=== PATIENT | female | born 1995 | race Caucasian/White ===

== ENCOUNTER 2016-11-16 06:44 | Inpatient (IN) | payer MEDICAID ==
--- NOTE | 2016-11-16 06:58 | PCM.LDHP ---
L&D History of Present Illness - General Date of Service: 11/16/16 Admit Problem/Dx: Admission Diagnosis/Problem Admission Diagnosis/Problem - History of Present Illness Introduction:: 21 year old G1Po here for induction of labor at 40+ weeks. complicated by a homonymous hemianopsia which has been worked up and she has had a normal MRI. - Related Data Allergies/Adverse Reactions: Allergies Allergy/AdvReac Type Severity Reaction Status Date / Time No Known Allergies Allergy Verified 11/10/16 01:27 Home Medications: Home Meds PNV95/Ferrous Fumarate/FA [ Tablet] 1 tab PO DAILY 11/10/16 [History] Past Medical History - Past Health History Medical/Surgical History: Denies Medical/Surgical History Social & Family History - Tobacco Use Smoking Status *Q: Never Smoker H&P Review of Systems - Review of Systems: Review Of Systems: See Below General: Reports: No Symptoms HEENT: Reports: No Symptoms Pulmonary: Reports: No Symptoms Cardiovascular: Reports: No Symptoms Gastrointestinal: Reports: No Symptoms Genitourinary: Reports: No Symptoms Musculoskeletal: Reports: No Symptoms Skin: Reports: No Symptoms Psychiatric: Reports: No Symptoms Neurological: Reports: No Symptoms Hematologic/Lymphatic: Reports: No Symptoms Immunologic: Reports: No Symptoms L&D Exam - Exam Exam: See Below - Vital Signs Weight: 82.1 kg - OB Specific Contraction Intensity: Mild to Moderate Movement: Active Heart Tones: Present Heart Tones per Min: 140 - Juarez Score Juarez Score Cervix Position: Midposition Juarez Score Consistency: Medium Juarez Score Effacement: >80% Juarez Score Dilation: 3-4 cm Juarez Score 's Station: -1 ,0 Juarez Score Total: 9 - Exam General: Alert, Oriented HEENT: PERRLA, Conjunctiva Clear, EACs Clear, EOMI, Hearing Intact, Mucosa Moist & [place], Nares Patent, Normal Nasal Septum, Posterior Pharynx Clear, TMs Clear Neck: Supple, Trachea Midline Lungs: Clear to Auscultation, Normal Respiratory Effort Cardiovascular: Regular Rate, Regular Rhythm GI/Abdominal Exam: Normal Bowel Sounds, Soft, Non-Tender, No Organomegaly, No Distention, No Abnormal Bruit, No Mass, Pelvis Stable Genitourinary: Normal external exam, Normal bimanual exam, Normal speculum exam Back Exam: Normal Inspection, Full Range of Motion Extremities: Normal Inspection, Normal Range of Motion, Non-Tender, No Pedal Edema, Normal Capillary Refill Skin: Warm, Dry, Intact Neurological: Cranial Nerves Intact, Reflexes Equal Bilateral Psychiatric: Alert, Normal Affect, Normal Mood Problem List Initiated/Reviewed/Updated: Yes Orders Last 24hrs: Term induction. AROM. Anticipate . EFW 7#3oz Pain management per pt preference
[2016-11-16] MEDS ORDERED: Ondansetron 4 MG/2 ML SDV IVPUSH PRN (07:44)
[2016-11-16] MEDS ORDERED: Nalbuphine 20 MG/1 ML Amp IVPUSH PRN (07:44)
[2016-11-16] MEDS ORDERED: Sodium Chloride 0.9% 10 ML Syringe FLUSH PRN (07:44)
[2016-11-16] MEDS ORDERED: Oxytocin/Lactated Ringers 10 UNIT/1,000 ML BAG IV SCH ×2 (07:45→09:45)
[2016-11-16] MEDS: Lactated Ringers 1,000 ML IV SCH ×2 (09:35→13:46)
[2016-11-16] MEDS ORDERED: fentaNYL 100 MCG/2 ML SDV EPIDUR PRN (12:10)
[2016-11-16] MEDS ORDERED: diphenhydrAMINE 50 MG/ML SDV IVPUSH PRN (12:10)
[2016-11-16] MEDS ORDERED: Bupivacaine/fentaNYL/NS 100 ML Bag EPIDUR SCH (12:15)
[2016-11-16] MEDS: ePHEDrine 50 MG/ML SDV IVPUSH PRN ×3 (13:10→13:45)
--- NOTE | 2016-11-16 13:27 | PCM.PREANE ---
Preanesthetic Assessment - Anesthesia/Transfusion/Family Hx Anesthesia History: Prior Anesthesia Without Reaction Family History of Anesthesia Reaction: No Transfusion History: No Prior Transfusion(s) - Review of Systems General: No Symptoms Pulmonary: No Symptoms Cardiovascular: No Symptoms Gastrointestinal: No Symptoms Neurological: No Symptoms Other: Reports: None - Physical Assessment Pulse: 80 O2 Sat by Pulse Oximetry: 97 Respiratory Rate: 20 Blood Pressure: 133/83 Temperature: 37.3 C Vital Signs: Last Vital Signs Temp 37.3 C 11/16/16 07:44 Pulse 80 11/16/16 07:44 Resp 20 11/16/16 07:44 BP 133/83 11/16/16 07:44 Pulse Ox 97 11/16/16 07:44 Height: 1.6 m Weight: 82.1 kg ASA Class: 2 Mental Status: Alert & Oriented x3 Airway Class: Mallampati = 1 Thyro-Mental Finger Breadths: 2 Mouth Opening Finger Breadths: 3 ROM/Head Extension: Full Lungs: Clear to Auscultation Cardiovascular: Regular Rate, Regular Rhythm - Lab Values: Laboratory Last Values WBC 11.17 K/mm3 (3.98-10.04) H 11/16/16 08:20 RBC 4.02 M/mm3 (3.98-5.22) 11/16/16 08:20 Hgb 12.2 gm/L (11.2-15.7) 11/16/16 08:20 Hct 35.6 % (34.1-44.9) 11/16/16 08:20 MCV 88.6 fl (79.4-94.8) 11/16/16 08:20 MCH 30.3 pg (25.6-32.2) 11/16/16 08:20 MCHC 34.3 g/dl (32.2-35.5) 11/16/16 08:20 RDW Std Deviation 42.4 fL (36.4-46.3) 11/16/16 08:20 Plt Count 187 K/mm3 (182-369) 11/16/16 08:20 MPV 10.8 fl (9.4-12.3) 11/16/16 08:20 Neut % (Auto) 74.1 % (34.0-71.1) H 11/16/16 08:20 Lymph % (Auto) 13.2 % (19.3-51.7) L 11/16/16 08:20 [place] % (Auto) 10.4 % (4.7-12.5) 11/16/16 08:20 Eos % (Auto) 1.9 (0.7-5.8) 11/16/16 08:20 Baso % (Auto) 0.1 % (0.1-1.2) 11/16/16 08:20 Neut # (Auto) 8.29 K/mm3 (1.56-6.13) H 11/16/16 08:20 Lymph # (Auto) 1.47 K/mm3 (1.18-3.74) 11/16/16 08:20 [place] # (Auto) 1.16 K/mm3 (0.24-0.36) H 11/16/16 08:20 Eos # (Auto) 0.21 K/mm3 (0.04-0.36) 11/16/16 08:20 Baso # (Auto) 0.01 K/mm3 (0.01-0.08) 11/16/16 08:20 - Allergies Allergies/Adverse Reactions: Allergies Allergy/AdvReac Type Severity Reaction Status Date / Time No Known Allergies Allergy Verified 11/10/16 01:27 - Acknowledgements Anesthesia Type Planned: Epidural Pt an Appropriate Candidate for the Planned Anesthesia: Yes Alternatives and Risks of Anesthesia Discussed w Pt/Guardian: Yes Pt/Guardian Understands and Agrees with Anesthesia Plan: Yes PreAnesthesia Questionnaire - Past Health History Medical/Surgical History: Denies Medical/Surgical History - SUBSTANCE USE Smoking Status *Q: Never Smoker Tobacco Use Within Last Twelve Months: No Second Hand Smoke Exposure: No Recreational Drug Use History: No - HOME MEDS Home Medications: Home Meds PNV95/Ferrous Fumarate/FA [ Tablet] 1 tab PO DAILY 11/10/16 [History] - CURRENT (IN HOUSE) MEDS Current Meds: Current Medications Diphenhydramine HCl (Benadryl) 25 mg IVPUSH Q6H PRN PRN Reason: Itching Ephedrine Sulfate (Ephedrine Sulfate) 5 mg IVPUSH ASDIRECTED PRN PRN Reason: HYPOTENTSION Fentanyl (Sublimaze) 100 mcg EPIDUR Q3H PRN PRN Reason: PAIN Last Admin: 11/16/16 13:09 Dose: 100 mcg Fentanyl/Bupivacaine HCl (Fentanyl/Bupivacaine/Ns 2 Mcg-0.125% 100 Ml) 100 ml EPIDUR ASDIRECTED PRASANNA Last Admin: 11/16/16 13:11 Dose: 100 ml Lactated Ringer's (Ringers, Lactated) 1,000 mls @ 100 mls/hr IV ASDIRECTED PRASANNA Last Admin: 11/16/16 09:35 Dose: 100 mls/hr Oxytocin/Lactated Ringer's (Pitocin In Lr 10 Units/1,000 Ml) 10 unit in 1,000 mls @ 500 mls/hr IV .CONTINUOUS PRASANNA Oxytocin/Lactated Ringer's (Pitocin In Lr 10 Units/1,000 Ml) 10 unit in 1,000 mls @ 12 mls/hr IV TITRATE PRASANNA; 2 MUNITS/MIN PRN Reason: Protocol Last Titration: 11/16/16 11:47 Dose: 6 munits/min, 36 mls/hr Nalbuphine HCl (Nubain) 10 mg IVPUSH Q2H PRN PRN Reason: Pain (moderate 4-6) Ondansetron HCl (Zofran) 4 mg IVPUSH Q4H PRN PRN Reason: Nausea/Vomiting Sodium Chloride (Saline Flush) 10 ml FLUSH ASDIRECTED PRN PRN Reason: Keep Vein Open
[2016-11-16] MEDS ORDERED: Lanolin 100% Cream 7 GM Tube TOP PRN (20:30)
[2016-11-16] MEDS ORDERED: Witch Hazel Medicated Pads 100/Jar TOP PRN (20:30)
[2016-11-16] MEDS ORDERED: Benzocaine/Menthol 20%-0.5% Spray 56 GM Canister TOP PRN (20:30)
[2016-11-16] MEDS: Ibuprofen 600 MG Tab PO PRN (21:40)
[2016-11-16] MEDS ORDERED: ePHEDrine 50 MG/ML SDV ONE (22:22)
[2016-11-16] MEDS ORDERED: Bupivacaine 0.25% 10 ML SDV ONE (22:22)
[2016-11-17] MEDS: Ibuprofen 600 MG Tab PO PRN ×3 (03:36→14:31)
[2016-11-17] MEDS: Docusate Sodium 100 MG Cap PO PRN ×2 (03:37→08:53)
--- NOTE | 2016-11-17 10:20 | PCM48HPAN ---
Post Anesthesia Note - EVALUATION WITHIN 48HRS OF ANESTHETIC Vital Signs in Normal Range: Yes Patient Participated in Evaluation: Yes Respiratory Function Stable: Yes Airway Patent: Yes Cardiovascular Function Stable: Yes Hydration Status Stable: Yes Pain Control Satisfactory: Yes Nausea and Vomiting Control Satisfactory: Yes Mental Status Recovered: Yes
[2016-11-18] MEDS ORDERED: Measles, Mumps & Rubella Vaccine 0.5 ML SDV SUBCUT ONE (03:42)
[2016-11-18] MEDS: Ibuprofen 600 MG Tab PO PRN (04:05)
[2016-11-18 05:03] VITALS: BP 125/69
--- NOTE | 2016-12-13 06:48 | PCM.DCSUM1 ---
Discharge Summary - Hospital Course Brief History: Admitted for labor. Unremarkable course. - Discharge Data Discharge Date: 11/18/16 Discharge Disposition: Home, Self-Care 01 Condition: Good - Patient Instructions Diet: Usual Diet as Tolerated, Regular Diet as Tolerated Diet, Other: extra calcium and calories while infant Activity: As Tolerated Activity, Other: no heavy lifting x 2 weeks, no tampons or intercourse til vag drainage stop Driving: May Drive Today Showering/Bathing: May Shower Showering/Bathing, Other: no swimming pools or hot tubs until vaginal drainage stops Notify Provider of: Fever, Increased Pain Other/Special Instructions: followup in clinic in 6 weeks, call for appointment - Discharge Plan Home Medications: Home Meds PNV95/Ferrous Fumarate/FA [ Tablet] 1 tab PO DAILY 11/10/16 [History] Patient Handouts: Exclusive , Home Care Instructions for Mom, Eating Plan for Women - General Info Date of Service: 11/18/16 Functional Status: Reports: Pain Controlled - Review of Systems General: Reports: No Symptoms HEENT: Reports: No Symptoms Pulmonary: Reports: No Symptoms Cardiovascular: Reports: No Symptoms Gastrointestinal: Reports: No Symptoms Genitourinary: Reports: No Symptoms Musculoskeletal: Reports: No Symptoms Skin: Reports: No Symptoms Neurological: Reports: No Symptoms Psychiatric: Reports: No Symptoms - Patient Data Vitals - Most Recent: Last Vital Signs Temp 36.5 C 11/18/16 03:38 Pulse 55 L 11/18/16 03:38 Resp 18 11/17/16 19:56 BP 125/69 11/18/16 03:38 Pulse Ox 100 11/18/16 03:38 Weight - Most Recent: 82.1 kg Med Orders - Current: Current Medications Discontinued Medications Benzocaine/Menthol (Dermoplast Pain Relief [place]) 0 gm TOP ASDIRECTED PRN PRN Reason: Perineal Comfort Measure Last Admin: 11/16/16 21:41 Dose: 1 applic Bupivacaine HCl (Sensorcaine-Mpf 0.25%) 10 ml .ROUTE .STK-MED ONE Stop: 11/16/16 22:23 Diphenhydramine HCl (Benadryl) 25 mg IVPUSH Q6H PRN PRN Reason: Itching Docusate Sodium (Colace) 100 mg PO BID PRN PRN Reason: Constipation Last Admin: 11/17/16 08:53 Dose: 100 mg Emollient Ointment (Lansinoh Hpa) 0 gm TOP ASDIRECTED PRN PRN Reason: Sore Nipples Last Admin: 11/17/16 03:37 Dose: 1 applic Ephedrine Sulfate (Ephedrine Sulfate) 5 mg IVPUSH ASDIRECTED PRN PRN Reason: HYPOTENTSION Last Admin: 11/16/16 13:45 Dose: 5 mg Ephedrine Sulfate (Ephedrine Sulfate) 50 mg .ROUTE .STK-MED ONE Stop: 11/16/16 22:23 Fentanyl (Sublimaze) 100 mcg EPIDUR Q3H PRN PRN Reason: PAIN Last Admin: 11/16/16 13:09 Dose: 100 mcg Fentanyl/Bupivacaine HCl (Fentanyl/Bupivacaine/Ns 2 Mcg-0.125% 100 Ml) 100 ml EPIDUR ASDIRECTED PRASANNA Last Admin: 11/16/16 13:11 Dose: 100 ml Lactated Ringer's (Ringers, Lactated) 1,000 mls @ 100 mls/hr IV ASDIRECTED PRASANNA Last Infusion: 11/16/16 15:16 Dose: 100 mls/hr Oxytocin/Lactated Ringer's (Pitocin In Lr 10 Units/1,000 Ml) 10 unit in 1,000 mls @ 500 mls/hr IV .CONTINUOUS PRASANNA Oxytocin/Lactated Ringer's (Pitocin In Lr 10 Units/1,000 Ml) 10 unit in 1,000 mls @ 12 mls/hr IV TITRATE PRASANNA; 2 MUNITS/MIN PRN Reason: Protocol Last Titration: 11/16/16 14:26 Dose: 10 munits/min, 60 mls/hr Ibuprofen (Motrin) 600 mg PO Q6H PRN PRN Reason: Mild pain or fever Last Admin: 11/18/16 04:05 Dose: 600 mg Measles/Mumps/Rubella Vaccine Live (M-M-R Ii Vaccine) 0.5 ml SUBCUT .ONCE ONE Stop: 11/18/16 03:43 Last Admin: 11/18/16 04:06 Dose: 0.5 ml Nalbuphine HCl (Nubain) 10 mg IVPUSH Q2H PRN PRN Reason: Pain (moderate 4-6) Ondansetron HCl (Zofran) 4 mg IVPUSH Q4H PRN PRN Reason: Nausea/Vomiting Sodium Chloride (Saline Flush) 10 ml FLUSH ASDIRECTED PRN PRN Reason: Keep Vein Open Witjuan [place] (Tucks) 1 pad TOP ASDIRECTED PRN PRN Reason: Hemorrhoid pain Last Admin: 11/16/16 21:41 Dose: 1 applic - Exam General: Reports: Alert, Oriented HEENT: Reports: Pupils Equal, Pupils Reactive, EOMI, Mucous Membr. Moist/[place] Neck: Reports: Supple Lungs: Reports: Clear to Auscultation, Normal Respiratory Effort Cardiovascular: Reports: Regular Rate, Regular Rhythm GI/Abdominal Exam: Normal Bowel Sounds, Soft, Non-Tender, No Organomegaly, No Distention, No Abnormal Bruit, No Mass, Pelvis Stable (Female) Exam: Normal External Exam, Normal Speculum Exam, Normal Bimanual Exam Rectal (Female) Exam: Normal Exam, Normal Rectal Tone Back Exam: Reports: Normal Inspection, Full Range of Motion Extremities: Normal Inspection, Normal Range of Motion, Non-Tender, No Pedal Edema, Normal Capillary Refill Skin: Reports: Warm, Dry, Intact Wound/Incisions: Reports: Healing Well Neurological: Reports: No New Focal Deficit Psy/Mental Status: Reports: Alert, Normal Affect, Normal Mood *Q Meaningful Use (DIS) - VTE *Q VTE Criteria *Q: - Stroke *Q Stroke Criteria *Q: - AMI *Q AMI Criteria *Q:
== END 2016-11-18 11:55 | disposition home or self-care (01) | DRG 775 ==
LOC: JD.OB 06:44 → OBSVTOIN 20:07
PROVIDERS: ADMIT Obstetrics & Gynecology; ATTEND Obstetrics & Gynecology
PROC: 10E0XZZ Delivery of Products of Conception, External Approach (ICD-10-PCS; 2016-11-16)
PROC: 0KQM0ZZ Repair Perineum Muscle, Open Approach (ICD-10-PCS; 2016-11-16)
PROC: 3E0P7GC Introduction of Other Therapeutic Substance into Female Reproductive, Via Natural or Artificial Opening (ICD-10-PCS; 2016-11-16)
PROC: 10907ZC Drainage of Amniotic Fluid, Therapeutic from Products of Conception, Via Natural or Artificial Opening (ICD-10-PCS; 2016-11-16)
PROC: 00HU33Z Insertion of Infusion Device into Spinal Canal, Percutaneous Approach (ICD-10-PCS; 2016-11-16)
PROC: 3E0R3CZ (ICD-10-PCS; 2016-11-16)
PROC: 3E0234Z Introduction of Serum, Toxoid and Vaccine into Muscle, Percutaneous Approach (ICD-10-PCS; principal; 2016-11-18)
DX: O75.89 Other specified complications of labor and delivery (principal); H53.469 Homonymous bilateral field defects, unspecified side; O70.1 Second degree perineal laceration during delivery; Z37.0 Single live birth; Z3A.40 40 weeks gestation of pregnancy; Z23 Encounter for immunization
CPT/HCPCS: 36415; 85025; 90707; A9270-GY; J2590; J3010; J7120

== ENCOUNTER 2018-12-13 18:57 | Emergency (ER) | payer MEDICAID ==
[2018-12-13 19:08] VITALS: BP 124/73
--- NOTE | 2018-12-13 21:27 | EDM.PDOC ---
ED HPI GENERAL MEDICAL PROBLEM - General Chief Complaint: [facility] Problem Stated Complaint: 8 wks pg bleeding vaginal Time Seen by Provider: 12/13/18 20:46 Source of Information: Reports: Patient History Limitations: Reports: No Limitations - History of Present Illness INITIAL COMMENTS - FREE TEXT/NARRATIVE: Patient is a 23-year-old female presents ED with scant pink blood with wiping after using the bathroom. Patient has some pressure to her pelvic region and is concerned this is related to her . Patient is 8 weeks . She states her last menstrual cycle was October 22 confirmed by urine test by [facility] [employer]. She denies any clotting or abnormal discharge from her vagina. She denies any nausea or vomiting, fever, dysuria, or recent activity/sexual intercourse that may have precipitated this. history 2 para 1. She does not know her blood type. She does have chronic mild low back pain which is constant from lifting her other child. She's been eating and drinking well. Denies any constipation or diarrhea. Past medical history positive for asthma. She is on albuterol. Denies any abdominal surgeries. Smoking history none. Alcohol use none. Drug use none. [facility] DRIVER specialist is Dr. Read. - Related Data Allergies Allergy/AdvReac Type Severity Reaction Status Date / Time No Known Allergies Allergy Verified 12/13/18 19:08 Home Meds: Home Meds PNV95/Ferrous Fumarate/FA [ Tablet] 1 tab PO DAILY 11/10/16 [History] cephALEXin [Keflex] 500 mg PO BID #9 cap 12/13/18 [Rx] Past Medical History - Past Health History Medical/Surgical History: Denies Medical/Surgical History Gastrointestinal History: Reports: GERD Social & Family History - Family History Family Medical History: Noncontributory - Tobacco Use Smoking Status *Q: Never Smoker - Caffeine Use Caffeine Use: Reports: Coffee - Recreational Drug Use Recreational Drug Use: No ED ROS GENERAL - Review of Systems Review Of Systems: ROS reveals no pertinent complaints other than HPI. ED EXAM - Physical Exam Exam: See Below Exam Limited By: No Limitations General Appearance: Alert, WD/WN, No Apparent Distress Ears: Hearing Grossly Normal Nose: Normal Inspection Throat/Mouth: Normal Voice, No Airway Compromise Head: Atraumatic, Normocephalic Neck: Normal Inspection, Supple Respiratory/Chest: No Respiratory Distress, Lungs Clear, Normal Breath Sounds, No Accessory Muscle Use, Chest Non-Tender Cardiovascular: Normal Peripheral Pulses, Regular Rate, Rhythm, No Murmur GI/Abdominal Exam: Normal Bowel Sounds, Soft, No Organomegaly, No Distention, Tender (Right adnexa region. No pain along McBurney's point. No pain along the right upper quadrant.) Back Exam: Normal Inspection. No: CVA Tenderness (L), CVA Tenderness (R) Extremities: Normal Inspection Neurological: Alert, Oriented, CN II-XII Intact, Normal Cognition, No Motor/ Sensory Deficits Psychiatric: Normal Affect, Normal Mood Skin Exam: Warm, Dry, Intact, Normal Color, No Rash Course - Vital Signs Last Recorded V/S: Last Vital Signs Temp 97.8 F 12/13/18 19:07 Pulse 81 12/13/18 19:07 Resp 16 12/13/18 19:07 BP 124/73 12/13/18 19:07 Pulse Ox 98 12/13/18 19:07 - Orders/Labs/Meds Orders: Active Orders 24 hr Category Date Time Status OB Transvaginal [US] Stat Exams 12/13/18 19:58 Taken CULTURE URINE [RM] Stat Lab 12/13/18 19:15 Received PATIENT RETYPE [BBK] Routine Lab 12/13/18 20:23 Received Labs: Laboratory Tests 12/13/18 12/13/18 12/13/18 Range/Units 19:15 20:23 20:23 WBC 10.01 (3.98-10.04) K/mm3 RBC 4.55 (3.98-5.22) M/mm3 Hgb 14.5 D (11.2-15.7) gm/L Hct 41.9 (34.1-44.9) % MCV 92.1 D (79.4-94.8) fl MCH 31.9 (25.6-32.2) pg MCHC 34.6 (32.2-35.5) g/dl RDW Std Deviation 42.4 (36.4-46.3) fL Plt Count 200 (182-369) K/mm3 MPV 10.5 (9.4-12.3) fl Neutrophils % (Manual) 68 H (40-60) % Band Neutrophils % 0 (0-10) % Lymphocytes % (Manual) 26 (20-40) % Atypical Lymphs % 0 % Monocytes % (Manual) 4 (2-10) % Eosinophils % (Manual) 1 (0.7-5.8) % Basophils % (Manual) 1 (0.1-1.2) Platelet Estimate Adequate Plt Morphology Comment Normal RBC Morph Comment Normal PT (9.7-12.0) SECONDS INR APTT (22-31) SECONDS Sodium 139 (136-145) mEq/L Potassium 3.4 L (3.5-5.1) mEq/L Chloride 102 (98-107) mEq/L Carbon Dioxide 23 (21-32) mEq/L Anion Gap 17.4 H (5-15) BUN 9 (7-18) mg/dL Creatinine 0.6 (0.55-1.02) mg/dL Est Cr Clr Drug Dosing 119.60 mL/min Estimated GFR (MDRD) > 60 (>60) mL/min BUN/Creatinine Ratio 15.0 (14-18) Glucose 92 (74-106) mg/dL Calcium 9.3 (8.5-10.1) mg/dL Total Bilirubin 0.5 (0.2-1.0) mg/dL AST 31 (15-37) U/L ALT 23 (14-59) U/L Alkaline Phosphatase 77 (46-116) U/L C-Reactive Protein 1.7 H* (<1.0) mg/dL Total Protein 8.0 (6.4-8.2) g/dl Albumin 4.0 (3.4-5.0) g/dl Globulin 4.0 gm/dL Albumin/Globulin Ratio 1.0 (1-2) HCG, Quant mIU/mL Urine Color Light yellow (Yellow) Urine Appearance Clear (Clear) Urine pH 6.5 (5.0-8.0) Ur Specific [place] 1.020 (1.005-1.030) Urine Protein Negative (Negative) Urine Glucose (UA) Negative (Negative) Urine Ketones 1+ H (Negative) Urine Occult Blood 2+ H (Negative) Urine Nitrite Negative (Negative) Urine Bilirubin Negative (Negative) Urine Urobilinogen 0.2 (0.2-1.0) Ur Leukocyte Esterase 1+ H (Negative) Urine RBC 5-10 H (0-5) /hpf Urine WBC 10-20 H (0-5) /hpf Ur Squamous Epith Cells 5-10 H (0-5) /hpf Urine Bacteria Few (FEW) /hpf Urine Mucus Rare (FEW) /hpf Blood Type 12/13/18 12/13/18 12/13/18 Range/Units 20:23 20:23 20:23 WBC (3.98-10.04) K/mm3 RBC (3.98-5.22) M/mm3 Hgb (11.2-15.7) gm/L Hct (34.1-44.9) % MCV (79.4-94.8) fl MCH (25.6-32.2) pg MCHC (32.2-35.5) g/dl RDW Std Deviation (36.4-46.3) fL Plt Count (182-369) K/mm3 MPV (9.4-12.3) fl Neutrophils % (Manual) (40-60) % Band Neutrophils % (0-10) % Lymphocytes % (Manual) (20-40) % Atypical Lymphs % % Monocytes % (Manual) (2-10) % Eosinophils % (Manual) (0.7-5.8) % Basophils % (Manual) (0.1-1.2) Platelet Estimate Plt Morphology Comment RBC Morph Comment PT 10.9 (9.7-12.0) SECONDS INR 1.00 APTT 24 (22-31) SECONDS Sodium (136-145) mEq/L Potassium (3.5-5.1) mEq/L Chloride (98-107) mEq/L Carbon Dioxide (21-32) mEq/L Anion Gap (5-15) BUN (7-18) mg/dL Creatinine (0.55-1.02) mg/dL Est Cr Clr Drug Dosing mL/min Estimated GFR (MDRD) (>60) mL/min BUN/Creatinine Ratio (14-18) Glucose (74-106) mg/dL Calcium (8.5-10.1) mg/dL Total Bilirubin (0.2-1.0) mg/dL AST (15-37) U/L ALT (14-59) U/L Alkaline Phosphatase (46-116) U/L C-Reactive Protein (<1.0) mg/dL Total Protein (6.4-8.2) g/dl Albumin (3.4-5.0) g/dl Globulin gm/dL Albumin/Globulin Ratio (1-2) HCG, Quant 09171.0 mIU/mL Urine Color (Yellow) Urine Appearance (Clear) Urine pH (5.0-8.0) Ur Specific [place] (1.005-1.030) Urine Protein (Negative) Urine Glucose (UA) (Negative) Urine Ketones (Negative) Urine Occult Blood (Negative) Urine Nitrite (Negative) Urine Bilirubin (Negative) Urine Urobilinogen (0.2-1.0) Ur Leukocyte Esterase (Negative) Urine RBC (0-5) /hpf Urine WBC (0-5) /hpf Ur Squamous Epith Cells (0-5) /hpf Urine Bacteria (FEW) /hpf Urine Mucus (FEW) /hpf Blood Type B POSITIVE - Re-Assessments/Exams Free Text/Narrative Re-Assessment/Exam: Concerned patient may have an ectopic . Ordered OB transvaginal ultrasound to rule out. In addition CBC, chem 14, ABO/Rh, urinalysis, and quantitative hCG. CBC essentially normal. Sodium 139, potassium 3.4, CO2 23, AG 17.4, creatinine 0.6, glucose 92, CRP is slightly elevated 1.7, hCG quantitative 17,331. Urinalysis 1+ ketones, occult blood 2+, leukocyte Estrace one plus, urine rbc's 5-10, urine wbc's 10-20, urine squamous cells 5-10. Appears to be contaminated. Ordered a urine culture. 12/13/18 21:[address] [facility] radiologists with results ultrasound. Patient has a single intrauterine with heart rate of 94 bpm within normal limits for this early . Measures at approximate 6 weeks 1 day. Small subchorionic hemorrhage measuring 0.3 cm noted. No ectopic . [place] luteum to the right ovary. Suggest close follow-up in one week with [facility] specialist. Blood type: B+ Discussed ultrasound results with patient. She has noted increased frequency of urination now that she thinks of it. I have opted to treat with macrobid 100mg po bid x 5 days. She agrees with plan and has no further questions or concerns. Return precautions discussed with the patient. Discharge instructions as documented. I have opted to change antibiotic to keflex. Departure - Departure Time of Disposition: 21:44 Disposition: Home, Self-Care 01 Condition: Good Clinical Impression: Subchorionic hemorrhage in first trimester Qualifiers: Fetus number: single or unspecified fetus Qualified Code(s): O41.8X10 - Other specified disorders of amniotic fluid and membranes, first trimester, not applicable or unspecified; O46.8X1 - Other antepartum hemorrhage, first trimester UTI (urinary tract infection) Qualifiers: Urinary tract infection type: site unspecified Hematuria presence: with hematuria Qualified Code(s): N39.0 - Urinary tract infection, site not specified ; R31.9 - Hematuria, unspecified - Discharge Information Prescriptions: cephALEXin [Keflex] 500 mg PO BID #9 cap Instructions: Urinary Tract Infection, Adult, Vaginal Bleeding During , First Trimester, Subchorionic Hematoma Referrals: Leisa Read MD [Primary Care Provider] - Forms: ED Department Discharge Additional Instructions: Refrain from heavy lifting, or any activities that cause exertion including sexual activity. Take the Keflex as prescribed. Monitor for increased bleeding as discussed if so return back to the ED for reevaluation. Call and make an appointment with your [facility] specialist to be evaluated within the next week. - My Orders Last 24 Hours: My Active Orders 12/13/18 19:15 CULTURE URINE [RM] Stat 12/13/18 19:58 OB Transvaginal [US] Stat 12/13/18 20:23 PATIENT RETYPE [BBK] Routine - Assessment/Plan Last 24 Hours: My Active Orders 12/13/18 19:15 CULTURE URINE [RM] Stat 12/13/18 19:58 OB Transvaginal [US] Stat 12/13/18 20:23 PATIENT RETYPE [BBK] Routine
[2018-12-13] MEDS ORDERED: Nitrofurantoin Monohydrate/Macrocrystalline 100 MG Cap PO ONE (21:43)
[2018-12-13] MEDS ORDERED: Cephalexin 500 MG Cap PO ONE (21:46)
--- NOTE | 2018-12-14 08:16 | US ---
First trimester obstetrical ultrasound: Multiple real-time images were obtained transvaginally. Comparison: No previous study for current . Dates: LMP: LMP given as 10/22/18, [place] 07/29/19, gestational age 7 weeks 3 days Current ultrasound: [place] 08/07/19, gestational age 6 weeks 1 day Single intrauterine gestation is seen. Yolk sac and pole are identified. Minimal subchorionic hemorrhage is seen. Maternal ovaries appear unremarkable. Measurements: [place]-rump length: 0.48 cm - 6 weeks 1 day Heart rate: 94 bpm Impression: 1. Single intrauterine gestation. Dates as noted above. 2. Very minimal subchorionic hemorrhage which will likely be incidental. 3. Low heart rate which is felt to relate to early gestational age. Diagnostic code #2 I agree with preliminary report from [facility], finalized on 12/13/89, 10:40 PM Central Time
== END 2018-12-13 22:00 | disposition home or self-care (01) ==
LOC: JD.ED 18:57
DX: O20.8 Other hemorrhage in early pregnancy (principal); O23.41 Unspecified infection of urinary tract in pregnancy, first trimester; R31.9 Hematuria, unspecified; Z79.899 Other long term (current) drug therapy; Z3A.08 8 weeks gestation of pregnancy
CPT/HCPCS: 36415; 76817; 80053; 81001; 84702; 85007; 85027; 85610; 85730; 86140; 86900; 86901; 87086; 99284; A9270; 99283

== ENCOUNTER 2019-01-08 13:22 | Emergency (ER) | payer MEDICAID ==
[2019-01-08 14:00] VITALS: BP 109/59; PULSE 85
--- NOTE | 2019-01-08 14:06 | EDM.PDOC ---
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 today. No associated lower abdominal cramping pain. No low back pain. Is any genitourinary complaints. All function has been normal. She did had some mild spotting per vagina about 4 weeks ago did have an ultrasound done at that time. Her last normal menstrual period was estimated to be October 22. Son suggested EDC of July 29, 2019. First delivery ended in a normal vaginal delivery. No previous abdominal surgery Onset: Today, Sudden Onset Date: 01/08/19 Onset Time: 13:00 Duration: Minutes: Location: Reports: Pelvis (Spontaneous bleeding per vagina in .) Quality: Reports: Other (No pain) Severity: Mild (Initially the bleeding was enough to soak several tissues when she was wiping. 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 (see below) (No lower abdominal pain none.) - Related Data Allergies Allergy/AdvReac Type Severity Reaction Status Date / Time No Known Allergies Allergy Verified 01/08/19 14:00 Home Meds: Home Meds oxyCODONE HCl/Acetaminophen [Percocet 5-325 mg Tablet] 1 - 2 each PO Q4H PRN # 12 tablet 01/08/19 [Rx] Past Medical History - Past Health History Medical/Surgical History: Denies Medical/Surgical History Gastrointestinal History: Reports: GERD 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 Denies: Fever, Chills, Malaise, Weakness HEENT: Reports: No Symptoms Respiratory: Reports: No Symptoms Cardiovascular: Reports: No Symptoms Endocrine: Reports: Fatigue GI/Abdominal: Denies: Abdominal Pain, Constipation, Nausea, Vomiting : Reports: Frequency. Denies: Dysuria Musculoskeletal: Reports: No Symptoms. Denies: Back Pain Skin: Reports: No Symptoms Neurological: Reports: No Symptoms Psychiatric: Reports: No Symptoms Hematologic/Lymphatic: Reports: No Symptoms ED EXAM - Physical Exam Exam: See Below Exam Limited By: No Limitations General Appearance: Alert, WD/WN, No Apparent Distress, Other (Vital signs are stable with temperature 36.8. Pulse 85 in sinus respiratory 16 BP 109/59. Sats are 99% on room air.) Eye Exam: Bilateral Eye: Normal Inspection Throat/Mouth: Normal Inspection, Normal Lips, Normal Oropharynx Respiratory/Chest: No Respiratory Distress, Lungs Clear, Normal Breath Sounds, No Accessory Muscle Use Cardiovascular: Normal Peripheral Pulses, Regular Rate, Rhythm, No Edema, No Gallop, No Murmur, No Rub GI/Abdominal Exam: Soft (Gravid uterus is not palpable abdominally.), Non-Tender , No Organomegaly, No Abnormal Bruit, No Mass, Pelvis Stable, Distended ( Hyperactive bowel sounds in all 4 quadrants slightly distended and tympanitic to percussion in all 4 quadrants.), Abnormal Bowel Sounds, Other (Female) Exam: Enlarged Uterus (Uterus feels of a proximal be 11 weeks gestation.). No: Adnexal Mass (L), Adnexal Mass (R) (Cervix is closed.), Cervical Dilatation Heart Tones: Not Butler Back Exam: Normal Inspection, Full Range of Motion. No: CVA Tenderness (L), CVA Tenderness (R) Extremities: Normal Inspection, Normal Range of Motion, Non-Tender Neurological: Alert, Oriented, CN II-XII Intact, Normal Cognition Psychiatric: Normal Affect, Anxious Skin Exam: Warm, Dry, Intact, Normal Color, No Rash Course - Vital Signs Last Recorded V/S: Last Vital Signs Temp 36.8 C 01/08/19 13:58 Pulse 85 01/08/19 13:58 Resp 16 01/08/19 13:58 BP 109/59 L 01/08/19 13:58 Pulse Ox 99 01/08/19 13:58 Orthostatic Blood Pressure [ 114/66 Standing] Orthostatic Blood Pressure [ 110/72 Sitting] Orthostatic Blood Pressure [ 108/62 Supine] - Orders/Labs/Meds Orders: Active Orders 24 hr Category Date Time Status Orthostatic Vital Signs [RC] ASDIRECTED Care 01/08/19 14:05 Active Sodium Chloride 0.9% [Normal Saline] 1,000 ml Med 01/08/19 14:15 Active IV ASDIRECTED Medication Orders Sodium Chloride (Normal Saline) 1,000 mls @ 150 mls/hr IV ASDIRECTED PRASANNA Labs: Laboratory Tests 01/08/19 01/08/19 01/08/19 Range/Units 14:24 14:38 14:38 WBC 7.88 (3.98-10.04) K/mm3 RBC 4.35 (3.98-5.22) M/mm3 Hgb 13.9 (11.2-15.7) gm/dl Hct 39.7 (34.1-44.9) % MCV 91.3 (79.4-94.8) fl MCH 32.0 (25.6-32.2) pg MCHC 35.0 (32.2-35.5) g/dl RDW Std Deviation 41.0 (36.4-46.3) fL Plt Count 177 L (182-369) K/mm3 MPV 10.8 (9.4-12.3) fl Neut % (Auto) 70.6 (34.0-71.1) % Lymph % (Auto) 19.0 L (19.3-51.7) % [place]cock % (Auto) 9.0 (4.7-12.5) % Eos % (Auto) 1.3 (0.7-5.8) Baso % (Auto) 0.1 (0.1-1.2) % Neut # (Auto) 5.56 (1.56-6.13) K/mm3 Lymph # (Auto) 1.50 (1.18-3.74) K/mm3 Hitchcock # (Auto) 0.71 H (0.24-0.36) K/mm3 Eos # (Auto) 0.10 (0.04-0.36) K/mm3 Baso # (Auto) 0.01 (0.01-0.08) K/mm3 Sodium 137 (136-145) mEq/L Potassium 3.8 (3.5-5.1) mEq/L Chloride 105 (98-107) mEq/L Carbon Dioxide 24 (21-32) mEq/L Anion Gap 11.8 (5-15) BUN 11 (7-18) mg/dL Creatinine 0.7 (0.55-1.02) mg/dL Est Cr Clr Drug Dosing 102.51 mL/min Estimated GFR (MDRD) > 60 (>60) mL/min BUN/Creatinine Ratio 15.7 (14-18) Glucose 85 (74-106) mg/dL Calcium 9.1 (8.5-10.1) mg/dL Total Bilirubin 0.3 (0.2-1.0) mg/dL AST 13 L (15-37) U/L ALT 18 (14-59) U/L Alkaline Phosphatase 61 (46-116) U/L Total Protein 7.0 (6.4-8.2) g/dl Albumin 3.7 (3.4-5.0) g/dl Globulin 3.3 gm/dL Albumin/Globulin Ratio 1.1 (1-2) HCG, Quant 9349.0 mIU/mL Urine Color Yellow (Yellow) Urine Appearance Clear (Clear) Urine pH 6.5 (5.0-8.0) Ur Specific [place] 1.020 (1.005-1.030) Urine Protein Negative (Negative) Urine Glucose (UA) Negative (Negative) Urine Ketones Negative (Negative) Urine Occult Blood Trace-lysed H (Negative) Urine Nitrite Negative (Negative) Urine Bilirubin Negative (Negative) Urine Urobilinogen 0.2 (0.2-1.0) Ur Leukocyte Esterase Trace H (Negative) Urine RBC 0-5 (0-5) /hpf Urine WBC 0-5 (0-5) /hpf Ur Squamous Epith Cells 0-5 (0-5) /hpf Urine Bacteria Few (FEW) /hpf Urine Mucus Not seen (FEW) /hpf Blood Type Gel Antibody Screen 01/08/19 Range/Units 14:38 WBC (3.98-10.04) K/mm3 RBC (3.98-5.22) M/mm3 Hgb (11.2-15.7) gm/dl Hct (34.1-44.9) % MCV (79.4-94.8) fl MCH (25.6-32.2) pg MCHC (32.2-35.5) g/dl RDW Std Deviation (36.4-46.3) fL Plt Count (182-369) K/mm3 MPV (9.4-12.3) fl Neut % (Auto) (34.0-71.1) % Lymph % (Auto) (19.3-51.7) % Hitchcock % (Auto) (4.7-12.5) % Eos % (Auto) (0.7-5.8) Baso % (Auto) (0.1-1.2) % Neut # (Auto) (1.56-6.13) K/mm3 Lymph # (Auto) (1.18-3.74) K/mm3 [place]cock # (Auto) (0.24-0.36) K/mm3 Eos # (Auto) (0.04-0.36) K/mm3 Baso # (Auto) (0.01-0.08) K/mm3 Sodium (136-145) mEq/L Potassium (3.5-5.1) mEq/L Chloride (98-107) mEq/L Carbon Dioxide (21-32) mEq/L Anion Gap (5-15) BUN (7-18) mg/dL Creatinine (0.55-1.02) mg/dL Est Cr Clr Drug Dosing mL/min Estimated GFR (MDRD) (>60) mL/min BUN/Creatinine Ratio (14-18) Glucose (74-106) mg/dL Calcium (8.5-10.1) mg/dL Total Bilirubin (0.2-1.0) mg/dL AST (15-37) U/L ALT (14-59) U/L Alkaline Phosphatase (46-116) U/L Total Protein (6.4-8.2) g/dl Albumin (3.4-5.0) g/dl Globulin gm/dL Albumin/Globulin Ratio (1-2) HCG, Quant mIU/mL Urine Color (Yellow) Urine Appearance (Clear) Urine pH (5.0-8.0) Ur Specific [place] (1.005-1.030) Urine Protein (Negative) Urine Glucose (UA) (Negative) Urine Ketones (Negative) Urine Occult Blood (Negative) Urine Nitrite (Negative) Urine Bilirubin (Negative) Urine Urobilinogen (0.2-1.0) Ur Leukocyte Esterase (Negative) Urine RBC (0-5) /hpf Urine WBC (0-5) /hpf Ur Squamous Epith Cells (0-5) /hpf Urine Bacteria (FEW) /hpf Urine Mucus (FEW) /hpf Blood Type B POSITIVE Gel Antibody Screen Negative Meds: Medications Generic Name Dose Route Start Last Admin Trade Name Ela PRN Reason Stop Dose Admin Sodium Chloride 1,000 mls @ 150 mls/hr 01/08/19 14:15 Normal Saline IV ASDIRECTED PRASANNA - Radiology Interpretation Free Text/Narrative:: 23-year-old female presents the ED in the first trimester . It is estimated that she is partially 11 weeks . Last menstrual period was October 22. A 1300 hrs. today while seated at work she started to feel a gush per vagina. On inspection the bathroom she noted this was bright red blood on tissue. She soaks several tissues with blood. Did not notice any clotting. Maroon colored line. Since coming to the hospital she's had no further bleeding. Examination reveals the cervix to be closed uterus is about 11 weeks in size. Extensive tenderness noted. Plan she will have routine labs including a quantitative beta hCG and type and screen done. She will then have a transvaginal ultrasound to rule viability. - Re-Assessments/Exams Free Text/Narrative Re-Assessment/Exam: 01/08/19 15:26 Labs reveal a normal white count at 7.88. The auto differential is 70.6% neutrophils. Hemoglobin is 13.9 with hematocrit of 39.7. Platelets counts 177,000. Urinalysis is normal other than trace of lysed blood. Trace leukocyte esterase but the slide shows no white cells or red cells. Blood type is B+. Quantitative beta-hCG is pending 01/08/19 16:24 Quantitative beta-hCG is 9349.0. Transvaginal ultrasound has been completed. There is a single intrauterine gestation identified. No growth however has been identified since previous examination nearly a month ago. No heart activity is also seen. Findings are compatible with a nonviable or inevitable miscarriage. Departure - Departure Time of Disposition: 16:50 Disposition: Home, Self-Care 01 Condition: Fair Clinical Impression: Inevitable - Discharge Information *PRESCRIPTION DRUG MONITORING PROGRAM REVIEWED*: Not Applicable *COPY OF PRESCRIPTION DRUG MONITORING REPORT IN PATIENT REGINO: Not Applicable Prescriptions: oxyCODONE HCl/Acetaminophen [Percocet 5-325 mg Tablet] 1 - 2 each PO Q4H PRN # 12 tablet PRN Reason: pain relief. Referrals: Leisa Read MD [Primary Care Provider] - Forms: ED Department Discharge, ED Return to Work/School Form Additional Instructions: Evaluation in the emergency room today in regards to sudden onset of bright red bleeding per vagina well seated at work today. Last Neulasta. Is estimated to be October 22, 2018. This should make you approximately 13 weeks and 2 days . The hormone of came back low at 9349. Her leg with a proximally a 3 week . Transvaginal ultrasound reveals a fetus approximate 6 weeks 2 days and size without any heartbeat. There has been no growth of the fetus since the last ultrasound was done nearly a month ago( Dec 13). This means that mother nature has turned off the fetus growth, usually due to a severe congenital abnormality. I.e. mother nature recognizes that this is just not going to turner off right .. You're therefore going to experience a very heavy period likely starting within the next 48 hours. The reason to return to medical care as if you're soaking a pad per hour for 2 consecutive hours would indicate that you are bleeding fairly heavily in need to return for potential operative intervention. If you start to have bad cramps try Motrin 600 mg every 6 hours. You may also use Percocet tabs 5/325 mg tabs one or 2 every 4-6 hours for pain not controlled by Motrin alone. Usually Percocet should be taken with some food in your stomach. With Dr. Bryant on Monday as planned. On my notes will be sent to her office. - My Orders Last 24 Hours: My Active Orders 01/08/19 14:05 Orthostatic Vital Signs [RC] ASDIRECTED 01/08/19 14:15 Sodium Chloride 0.9% [Normal Saline] 1,000 ml IV ASDIRECTED - Assessment/Plan Last 24 Hours: My Active Orders 01/08/19 14:05 Orthostatic Vital Signs [RC] ASDIRECTED 01/08/19 14:15 Sodium Chloride 0.9% [Normal Saline] 1,000 ml IV ASDIRECTED
[2019-01-08] MEDS ORDERED: Sodium Chloride 0.9% 1,000 ML IV SCH (14:15)
--- NOTE | 2019-01-08 16:15 | US ---
1st trimester obstetrical ultrasound: Multiple real-time images were obtained transvaginally. Comparison: Previous obstetrical ultrasound 12/13/18. Dates: Current ultrasound: [place] 09/02/19, gestational age 6 weeks 1 day Earliest ultrasound (12/13/18), [place] 08/07/19, gestational age 9 weeks 6 days Single intrauterine gestation is seen. No growth is seen from previous exam. No heart activity is seen. Findings are compatible with nonviable . Maternal ovaries appear within normal limits. Measurements: [place]-rump length: 0.53 cm - 6 weeks 2 days Impression: 1. Single intrauterine gestation. pole has not grown from previous exam. In addition, no heart activity is seen. Findings are felt compatible with nonviable . Diagnostic code #5
== END 2019-01-08 17:11 | disposition home or self-care (01) ==
LOC: JD.ED 13:22
DX: O03.9 Complete or unspecified spontaneous abortion without complication (principal)
CPT/HCPCS: 36415; 76817; 76817-26; 80053; 81001; 84702; 85025; 86850; 86900; 86901; 99284-25

== ENCOUNTER 2019-12-29 11:14 | Emergency (ER) | payer MEDICAID ==
[2019-12-29 11:31] VITALS: BP 144/106; PULSE 79
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
--- NOTE | 2019-12-30 11:14 | CR ---
Chest: Portable view of the chest was obtained. Comparison: No prior chest imaging is available. Heart size and mediastinum are normal. Lungs are clear with no acute parenchymal change. Bony structures are unremarkable for the patient's age. Impression: 1. Nothing acute is appreciated on portable chest x-ray. Diagnostic code #1 This report was dictated in MDT
== END 2019-12-29 12:50 | disposition home or self-care (01) ==
LOC: JD.ED 11:14
DX: J45.909 Unspecified asthma, uncomplicated (principal); Z87.891 Personal history of nicotine dependence; Z79.899 Other long term (current) drug therapy
CPT/HCPCS: 71045; 71045-26; 99283; 99284-25

== ENCOUNTER 2020-01-24 06:07 | Emergency (ER) | payer MEDICAID ==
[2020-01-24 06:21] VITALS: BP 124/73
--- NOTE | 2020-01-24 06:30 | EDM.PDOC ---
ED HPI GENERAL MEDICAL PROBLEM - General Chief Complaint: General Stated Complaint: SORE THROAT Time Seen by Provider: 01/24/20 06:22 - History of Present Illness INITIAL COMMENTS - FREE TEXT/NARRATIVE: 24-year-old female presents the emergency room with a sore throat. This started yesterday progressively got worse. Now feels like she has something in the back of her throat. Prior to coming in the patient drank some tea and this helped quite a bit. Patient denies any fevers or chills she has not had any achiness no loss of taste or smell. The patient has not had any problems with recurrent, or chronic strep. She is not having any difficulty swallowing. Throat Pain Score (Numeric/FACES): 5 - Related Data Allergies Allergy/AdvReac Type Severity Reaction Status Date / Time No Known Allergies Allergy Verified 01/24/20 06:21 Home Meds: Home Meds Albuterol Sulfate [Albuterol Sulfate Hfa] 2 puff INH Q4H PRN 12/29/19 [History] Budesonide/Formoterol Fumarate [Symbicort 80-4.5 MCG] 2 puff IH BID #1 inhaler 12/29/19 [Rx] Fluticasone Propionate [Flonase] 1 spray ZACK DAILY PRN 01/24/20 [History] Past Medical History - Past Health History Medical/Surgical History: Denies Medical/Surgical History Respiratory History: Reports: Asthma Gastrointestinal History: Reports: GERD 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: - Past Surgical History Neurological Surgical History: Reports: Other (See Below) Other Neurological Surgeries/Procedures: arm surgery Social & Family History - Family History Family Medical History: Noncontributory - Caffeine Use Caffeine Use: Reports: None - Living Situation & Occupation Living situation: Reports: Occupation: Employed ED ROS GENERAL - Review of Systems Review Of Systems: See Below Constitutional: Reports: No Symptoms HEENT: Reports: Throat Pain Respiratory: Reports: No Symptoms Cardiovascular: Reports: No Symptoms GI/Abdominal: Reports: No Symptoms : Reports: No Symptoms ED EXAM, GENERAL - Physical Exam Exam: See Below Exam Limited By: No Limitations General Appearance: Alert, No Apparent Distress Eye Exam: Bilateral Eye: Normal Inspection Ears: Normal External Exam, Normal Canal, Hearing Grossly Normal, Normal TMs Nose: Normal Inspection, Normal Mucosa, No Blood Throat/Mouth: Normal Inspection, Normal Lips, Normal Teeth, Normal Gums, Normal Oropharynx, Normal Voice, No Airway Compromise Head: Atraumatic, Normocephalic Neck: Normal Inspection, Supple, Non-Tender, Full Range of Motion Respiratory/Chest: No Respiratory Distress, Lungs Clear, Normal Breath Sounds, No Accessory Muscle Use, Chest Non-Tender Cardiovascular: Regular Rate, Rhythm, No Edema, No Murmur GI/Abdominal: Normal Bowel Sounds, Soft, Non-Tender Back Exam: Normal Inspection. No: CVA Tenderness (L), CVA Tenderness (R) Neurological: Alert, Oriented, Normal Cognition Course - Vital Signs Last Recorded V/S: Last Vital Signs Temp 36.7 C 01/24/20 06:16 Pulse 102 H 01/24/20 06:16 Resp 18 01/24/20 06:16 BP 124/73 01/24/20 06:16 Pulse Ox 98 01/24/20 06:16 - Orders/Labs/Meds Orders: Active Orders 24 hr Category Date Time Status CULTURE STREP A CONFIRMATION [RM] Stat Lab 01/24/20 06:40 Results Rapid Strep w/culture conf [STREP SCRN A RAPID W CULT Lab 01/24/20 06:40 Results CONF] [RM] Stat - Re-Assessments/Exams Free Text/Narrative Re-Assessment/Exam: 01/24/20 07:15 Rapid strep negative await confirmatory culture. Departure - Departure Time of Disposition: 07:15 Disposition: Home, Self-Care 01 Clinical Impression: Pharyngitis - Discharge Information Referrals: Cathie Lake PA-C [Primary Care Provider] - Forms: ED Department Discharge Additional Instructions: Return to the emergency room with any questions problems or worsening symptoms. The confirmatory culture is still pending however your rapid strep was negative. The results of this should be back in a couple of days you will hear back from us if it is positive. Continue symptomatic treatment for your sore throat. Sepsis Event Note (ED) - Evaluation Sepsis Screening Result: No Definite Risk - Focused Exam Vital Signs: Vital Signs Temp Pulse Resp BP Pulse Ox 01/24/20 06:16 36.7 C 102 H 18 124/73 98 - My Orders Last 24 Hours: My Active Orders 01/24/20 06:40 CULTURE STREP A CONFIRMATION [RM] Stat Rapid Strep w/culture conf [STREP SCRN A RAPID W CULT CONF] [RM] Stat - Assessment/Plan Last 24 Hours: My Active Orders 01/24/20 06:40 CULTURE STREP A CONFIRMATION [RM] Stat Rapid Strep w/culture conf [STREP SCRN A RAPID W CULT CONF] [RM] Stat
[2020-01-24 07:38] VITALS: PULSE 101
== END 2020-01-24 07:31 | disposition home or self-care (01) ==
LOC: JD.ED 06:07
DX: J02.9 Acute pharyngitis, unspecified (principal); J45.909 Unspecified asthma, uncomplicated; Z79.899 Other long term (current) drug therapy
CPT/HCPCS: 87081; 87430; 99282; 99283

== ENCOUNTER 2020-02-12 08:05 | Emergency (ER) | payer MEDICAID ==
[2020-02-12] MEDS ORDERED: Dextrose 5%-0.9% NaCl 1,000 ML IV SCH (08:45)
[2020-02-12] MEDS ORDERED: LORazepam 2 MG/ML SDV IV ONE (08:45)
[2020-02-12] MEDS ORDERED: Ondansetron 4 MG/2 ML SDV IVPUSH ONE (08:45)
--- NOTE | 2020-02-12 08:49 | EDM.PDOC ---
ED HPI GENERAL MEDICAL PROBLEM - General Chief Complaint: Gastrointestinal Problem Stated Complaint: VOMITING Time Seen by Provider: 02/12/20 08:39 Source of Information: Reports: Patient History Limitations: Reports: No Limitations - History of Present Illness INITIAL COMMENTS - FREE TEXT/NARRATIVE: 24-year-old female presents to the ED for evaluation of intractable nausea and vomiting. Patient reports she took a 20 mg Prozac tablet for the first time about 1800 hrs. last evening. She will awoke around midnight with acute onset of vomiting. She felt hot flushed and prickly all over. Emesis contained primarily recently drank Gatorade. Subsequently vomited again at 0600 hrs. and again at 0800 hrs. this morning. Feels weak and shaky. She feels moderately anxious as well. Mild diffuse upper abdominal discomfort she believes from vomiting. Denies any possibility of as she is currently menstruating. She has a history of asthma which is well controlled. She has felt mildly chilled. Denies any fever. Has not developed any diarrhea. Denies any cough or sputum production. No known exposure to anyone with COVID-19. Onset: Today, Sudden Onset Date: 02/12/20 Onset Time: 00:00 Duration: Hour(s):, Constant, Intermittent (Tractable recurrent nausea and vomiting.) Location: Reports: Abdomen (Use upper abdominal discomfort with associated nausea and vomiting.) Quality: Reports: Ache (Be gastrium.) Severity: Moderate Improves with: Reports: None Worsens with: Reports: Other (Vomiting. Even water came back up this morning.) Context: Reports: Other (Due to onset of nausea and vomiting 6 hours after taking first tablet of Prozac 20 mg tablet.). Denies: Activity, Exercise, Lifting, Sick Contact, Trauma Associated Symptoms: Reports: Fever/Chills, Loss of Appetite, Malaise, Nausea/Vomiting (Chills but no fever nausea and vomiting), Weakness. 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 (see below) (Nothing will stay down.) Abdomen Pain Score (Numeric/FACES): 4 - Related Data Allergies Allergy/AdvReac Type Severity Reaction Status Date / Time No Known Allergies Allergy Verified 02/12/20 08:33 Home Meds: Home Meds Albuterol Sulfate [Albuterol Sulfate Hfa] 2 puff INH Q4H PRN 12/29/19 [History] Budesonide/Formoterol Fumarate [Symbicort 80-4.5 MCG] 2 puff IH BID #1 inhaler 12/29/19 [Rx] Fluticasone Propionate [Flonase] 1 spray ZACK DAILY PRN 01/24/20 [History] Escitalopram [Lexapro] 10 mg PO DAILY #21 tab 02/12/20 [Rx] FLUoxetine HCl [Prozac] 20 mg PO DAILY 02/12/20 [History] Ondansetron [Zofran] 4 mg BUCCAL Q6H PRN #5 tab 02/12/20 [Rx] Past Medical History - Past Health History Medical/Surgical History: Denies Medical/Surgical History Respiratory History: Reports: Asthma Gastrointestinal History: Reports: GERD 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: : 2 Para: 1 (Patient had 1 spontaneous miscarriage.) Psychiatric History: Reports: Anxiety - Infectious Disease History Infectious Disease History: Reports: Chicken Pox - Past Surgical History Neurological Surgical History: Reports: Other (See Below) Other Neurological Surgeries/Procedures: arm surgery Social & Family History - Family History Family Medical History: Noncontributory - Tobacco Use Tobacco Use Status *Q: Former Tobacco User Used Tobacco, but Quit: Yes Month/Year Tobacco Last Used: quit 6 months ago - Caffeine Use Caffeine Use: Reports: Coffee - Recreational Drug Use Recreational Drug Use: No - Living Situation & Occupation Living situation: Reports: Occupation: Employed ED ROS GENERAL - Review of Systems Review Of Systems: See Below Constitutional: Reports: Chills, Malaise, Weakness, Fatigue, Decreased Appetite. Denies: Fever HEENT: Reports: No Symptoms Respiratory: Reports: No Symptoms Cardiovascular: Reports: No Symptoms Endocrine: Reports: Fatigue GI/Abdominal: Reports: Abdominal Pain, Nausea (Upper abdominal discomfort she believes from vomiting.), Vomiting (Intractable nausea and vomiting of recently drank fluids and mild bile-stained emesis.). Denies: Constipation, Diarrhea, Hematemesis : Reports: Other (Currently on third day of menstrual cycle) Musculoskeletal: Reports: No Symptoms Skin: Reports: No Symptoms Neurological: Reports: Dizziness, Other (Feels hot and prickly and flushed.) Psychiatric: Reports: Anxiety, Depression (Only started Prozac yesterday for anxiety depression symptoms) Hematologic/Lymphatic: Reports: No Symptoms Immunologic: Reports: No Symptoms ED EXAM, GI/ABD - Physical Exam Exam: See Below Exam Limited By: No Limitations General Appearance: Alert, WD/WN, Mild Distress, Other (Temperature is 36.9 with a heart rate of 77 and sinus respiratory is 14 BP 135/95 with O2 sats of 99% room air) Eyes: Bilateral: Normal Appearance (No scleral icterus or blepharal pallor.) Throat/Mouth: Normal Inspection (Tongue is mildly dry and coated.), Normal Lips, Normal Teeth, Normal Oropharynx (No signs of oropharyngeal infection.), Other Head: Atraumatic, Normocephalic Neck: Normal Inspection, Supple, Non-Tender, Full Range of Motion. No: Carotid Bruit, Lymphadenopathy (L), Lymphadenopathy (R) Respiratory/Chest: No Respiratory Distress, Lungs Clear, Normal Breath Sounds, No Accessory Muscle Use Cardiovascular: Normal Peripheral Pulses, Regular Rate, Rhythm, No Edema, No Gallop, No Murmur, No Rub GI/Abdominal Exam: Normal Bowel Sounds, Soft, No Organomegaly ( examination of the epigastrium. Appears to be more muscular in origin.), No Distention, No Mass, Pelvis Stable, Tender (Tenderness elicited on) Back Exam: Normal Inspection, Full Range of Motion. No: CVA Tenderness (L), CVA Tenderness (R) Extremities: Normal Inspection, Normal Range of Motion, Non-Tender, No Pedal Edema Neurological: Alert, Oriented, CN II-XII Intact, Normal Cognition Psychiatric: Anxious (Mild.) Skin Exam: Dry, Intact, Normal Color, No Rash, Cool (Extremities are cool to touch.) Course - Vital Signs Last Recorded V/S: Last Vital Signs Temp 36.9 C 02/12/20 08:34 Pulse 77 02/12/20 08:34 Resp 14 02/12/20 08:34 BP 135/95 H 02/12/20 08:34 Pulse Ox 99 02/12/20 08:34 - Orders/Labs/Meds Orders: Active Orders 24 hr Category Date Time Status Dextrose 5%-0.9% NaCl [Dextrose 5%-Normal Saline] 1,000 Med 02/12/20 08:45 Active ml IV ASDIRECTED Medication Orders Dextrose/Sodium Chloride (Dextrose 5%-Normal Saline) 1,000 mls @ 999 mls/hr IV ASDIRECTED PRASANNA Last Admin: 02/12/20 09:00 Dose: 999 mls/hr Documented by: MELISSA Labs: Laboratory Tests 02/12/20 02/12/20 02/12/20 Range/Units 08:45 08:45 08:53 WBC 11.70 H (3.98-10.04) K/mm3 RBC 4.59 (3.98-5.22) M/mm3 Hgb 14.8 (11.2-15.7) gm/dl Hct 43.8 (34.1-44.9) % MCV 95.4 H D (79.4-94.8) fl MCH 32.2 (25.6-32.2) pg MCHC 33.8 (32.2-35.5) g/dl RDW Std Deviation 42.3 (36.4-46.3) fL Plt Count 241 (182-369) K/mm3 MPV 10.6 (9.4-12.3) fl Neut % (Auto) 83.8 H (34.0-71.1) % Lymph % (Auto) 11.2 L (19.3-51.7) % [place] % (Auto) 4.5 L (4.7-12.5) % Eos % (Auto) 0.2 L (0.7-5.8) Baso % (Auto) 0.1 (0.1-1.2) % Neut # (Auto) 9.81 H (1.56-6.13) K/mm3 Lymph # (Auto) 1.31 (1.18-3.74) K/mm3 [place] # (Auto) 0.53 H (0.24-0.36) K/mm3 Eos # (Auto) 0.02 L (0.04-0.36) K/mm3 Baso # (Auto) 0.01 (0.01-0.08) K/mm3 Sodium 139 (136-145) mEq/L Potassium 3.8 (3.5-5.1) mEq/L Chloride 103 (98-107) mEq/L Carbon Dioxide 23 (21-32) mEq/L Anion Gap 16.8 H (5-15) BUN 12 (7-18) mg/dL Creatinine 0.9 (0.55-1.02) mg/dL Est Cr Clr Drug Dosing 75.58 mL/min Estimated GFR (MDRD) > 60 (>60) mL/min BUN/Creatinine Ratio 13.3 L (14-18) Glucose 101 (74-106) mg/dL Calcium 9.2 (8.5-10.1) mg/dL Total Bilirubin 0.4 (0.2-1.0) mg/dL AST 19 (15-37) U/L ALT 27 (14-59) U/L Alkaline Phosphatase 67 (46-116) U/L Total Protein 7.7 (6.4-8.2) g/dl Albumin 3.7 (3.4-5.0) g/dl Globulin 4.0 gm/dL Albumin/Globulin Ratio 0.9 L (1-2) Lipase 83 (73-393) U/L Urine Color Yellow (Yellow) Urine Appearance Clear (Clear) Urine pH 7.0 (5.0-8.0) Ur Specific [place] 1.025 (1.005-1.030) Urine Protein Negative (Negative) Urine Glucose (UA) Negative (Negative) Urine Ketones Negative (Negative) Urine Occult Blood 3+ H (Negative) Urine Nitrite Negative (Negative) Urine Bilirubin Negative (Negative) Urine Urobilinogen 0.2 (0.2-1.0) Ur Leukocyte Esterase Negative (Negative) Urine RBC 10-20 H (0-5) /hpf Urine WBC 0-5 (0-5) /hpf Ur Squamous Epith Cells 0-5 (0-5) /hpf Urine Bacteria Few (FEW) /hpf Urine Mucus Few (FEW) /hpf Meds: Medications Generic Name Dose Route Start Last Admin Trade Name Freq PRN Reason Stop Dose Admin Dextrose/Sodium Chloride 1,000 mls @ 999 mls/hr 02/12/20 08:45 02/12/20 09:00 Dextrose 5%-Normal Saline IV 999 mls/hr ASDIRECTED PRASANNA Administration Discontinued Medications Generic Name Dose Route Start Last Admin Trade Name Ela PRN Reason Stop Dose Admin Lorazepam 0.5 mg 02/12/20 08:45 02/12/20 09:01 Ativan IV 02/12/20 08:46 0.5 mg ONETIME ONE Administration Ondansetron HCl 4 mg 02/12/20 08:45 02/12/20 09:00 Zofran IVPUSH 02/12/20 08:46 4 mg ONETIME ONE Administration - Radiology Interpretation Free Text/Narrative:: 24-year-old female presents to the ED with acute onset of nausea and vomiting 6 hours after taking a dose of Prozac 20 mg strength for the first time. She has subsequently vomited 3 times overnight have been taking the tablet at 1800 hrs. last evening. She feels hot prickly and anxious all potential side effects of Prozac. This medication was started for generalized anxiety disorder with mild depression overtones. Her only other history is that of well-controlled asthma with steroid inhaler and albuterol rescue inhaler as needed. Uses Flonase for allergic rhinitis. Benign abdominal examination. Plan D5 normal saline at open. Given Zofran 4 mg IV for nausea relief. Given Ativan 0.5 mg IV for relief of anxiety. CBC and CMP and serum lipase ordered. - Re-Assessments/Exams Free Text/Narrative Re-Assessment/Exam: 02/12/20 09:51 White count is elevated at 11.70 with 83.8% neutrophils on the auto differential. Hemoglobin is 14.8 with hematocrit of 43.8. MCV is mildly elevated at 95.4. Platelet count is normal at 241,000. Chemistry shows a sodium of 139 and a potassium of 3.8. Chloride is 103 with a bicarb of 23. Anion gap is mildly elevated at 16.8. BUN is 12 with a creatinine of 0.9. GFR is greater than 60. Glucose was 101. Calcium is 9.2 liver function normal. Total protein 7.7 with albumin fraction of 3.7. Serum lipase is normal at 83. Urinalysis shows 3+ occult blood but she is on third day of menses. Leukocyte Estrace is negative. Patient reports she is feeling better. She was actually able to fall asleep for a period of time. Decision made to try a different antidepressant medication which she requires for anxiety relief primarily. We will start with Escitalopram 10 mg once daily with food. Departure - Departure Time of Disposition: 10:08 Disposition: Home, Self-Care 01 Condition: Fair Clinical Impression: Adverse effects of medication Qualifiers: Encounter type: initial encounter Qualified Code(s): T50.905A - Adverse effect of unspecified drugs, medicaments and biological substances, initial encounter Nausea and vomiting Qualifiers: Vomiting type: bilious vomiting Qualified Code(s): R11.14 - Bilious vomiting - Discharge Information *PRESCRIPTION DRUG MONITORING PROGRAM REVIEWED*: Not Applicable *COPY OF PRESCRIPTION DRUG MONITORING REPORT IN PATIENT REGINO: Not Applicable Prescriptions: Escitalopram [Lexapro] 10 mg PO DAILY #21 tab Ondansetron [Zofran] 4 mg BUCCAL Q6H PRN #5 tab PRN Reason: nausea or vomiting Instructions: Nausea and Vomiting, Adult Referrals: Cathie Lake PA-C [Primary Care Provider] - Forms: ED Department Discharge Additional Instructions: Evaluation in the emergency room this morning in regards to recurrent nausea and vomiting starting at midnight last evening. This seemed to be precipitated by taking her first tablet of Prozac 20 mg strength at about 1800 hrs. last evening. Certainly symptoms of hot flushing sensation and increased anxiety are potential side effects of Prozac. Lab test did not reveal any other signs of infection. You were treated with a liter of IV fluids in the ED and given medication Zofran 4 mg IV for nausea relief and 0.5 mg of Ativan to relieve anxiety symptoms. He will be discharged with Zofran 4 mg tablets to be taken un tami the tongue every 4-6 hours if necessary for further nausea or vomiting relief. Goal is to drink plenty of fluids today such as Gatorade Powerade and resume diet as able. Discontinue the Prozac as we discussed and replace it with medication called Escitalopram 10 mg strength once daily with food. I would start this tomorrow when you are feeling better. Follow-up with your personal care physician in approximately 3 weeks time for review of medication Sepsis Event Note (ED) - Evaluation Sepsis Screening Result: No Definite Risk - Focused Exam Vital Signs: Vital Signs Temp Pulse Resp BP Pulse Ox 02/12/20 08:34 36.9 C 77 14 135/95 H 99 - My Orders Last 24 Hours: My Active Orders 02/12/20 08:45 Dextrose 5%-0.9% NaCl [Dextrose 5%-Normal Saline] 1,000 ml IV ASDIRECTED - Assessment/Plan Last 24 Hours: My Active Orders 02/12/20 08:45 Dextrose 5%-0.9% NaCl [Dextrose 5%-Normal Saline] 1,000 ml IV ASDIRECTED
[2020-02-12 10:20] VITALS: BP 120/70; PULSE 68
== END 2020-02-12 10:22 | disposition home or self-care (01) ==
LOC: JD.ED 08:05
DX: R11.14 Bilious vomiting (principal); T43.225A Adverse effect of selective serotonin reuptake inhibitors, initial encounter; J45.909 Unspecified asthma, uncomplicated; Z87.891 Personal history of nicotine dependence; Z79.899 Other long term (current) drug therapy
CPT/HCPCS: 36415; 80053; 81001; 83690; 85025; 96361; 96374; 96375; 99284-25; J2060; J2405; J7042

== ENCOUNTER 2020-02-13 08:46 | Emergency (ER) | payer MEDICAID ==
[2020-02-13] MEDS ORDERED: Ondansetron 4 MG/2 ML SDV IVPUSH ONE (09:22)
[2020-02-13] MEDS ORDERED: Sodium Chloride 0.9% 10 ML Syringe FLUSH PRN (09:22)
[2020-02-13] MEDS ORDERED: Sodium Chloride 0.9% 1,000 ML IV STA (09:22)
--- NOTE | 2020-02-13 09:34 | EDM.PDOC ---
ED HPI GENERAL MEDICAL PROBLEM - General Chief Complaint: Gastrointestinal Problem Stated Complaint: NAUSEA, DIARRHEA Time Seen by Provider: 02/13/20 09:01 Source of Information: Reports: Patient History Limitations: Reports: No Limitations - History of Present Illness INITIAL COMMENTS - FREE TEXT/NARRATIVE: The patient presents with fever, chills, nausea and diarrhea. This all started yesterday after she took a prozac. She felt nauseated and vomited a few times and had anxiety. She had just started the prozac. She came in here and had labs that showed an elevated WBC. She did not have much pain. She got fluids and something for nausea. She felt good and was discharged and started on lexapro instead of the prozac. She says the nausea is better but now she has di arrhea, fever, chills and she feels short of breath. She does have a history of asthma. She has no cough or chest pain. She does still have some generalized abdominal pain. Onset: Gradual Duration: Day(s): Location: Reports: Abdomen Quality: Reports: Ache Severity: Mild Improves with: Reports: None Worsens with: Reports: None Associated Symptoms: Reports: Fever/Chills, Nausea/Vomiting, Shortness of Breath. Denies: Chest Pain, Cough, Headaches Middle Abdomen Pain Score (Numeric/FACES): 5 - Related Data Allergies Allergy/AdvReac Type Severity Reaction Status Date / Time No Known Allergies Allergy Verified 02/13/20 09:01 Home Meds: Home Meds Albuterol Sulfate [Albuterol Sulfate Hfa] 2 puff INH Q4H PRN 12/29/19 [History] Budesonide/Formoterol Fumarate [Symbicort 80-4.5 MCG] 2 puff IH BID #1 inhaler 12/29/19 [Rx] Fluticasone Propionate [Flonase] 1 spray ZACK DAILY PRN 01/24/20 [History] Escitalopram [Lexapro] 10 mg PO DAILY #21 tab 02/12/20 [Rx] Ondansetron [Zofran] 4 mg BUCCAL Q6H PRN #5 tab 02/12/20 [Rx] Past Medical History - Past Health History Medical/Surgical History: Denies Medical/Surgical History Respiratory History: Reports: Asthma Gastrointestinal History: Reports: GERD Genitourinary History: Reports: UTI, Recurrent 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 Social & Family History - Family History Family Medical History: Noncontributory - Tobacco Use Tobacco Use Status *Q: Never Tobacco User Second Hand Smoke Exposure: No - Caffeine Use Caffeine Use: Reports: Coffee - Recreational Drug Use Recreational Drug Use: No - Living Situation & Occupation Living situation: Reports: Occupation: Employed ED ROS GENERAL - Review of Systems Review Of Systems: See Below Constitutional: Reports: Fever, Chills, Malaise, Weakness HEENT: Reports: No Symptoms Respiratory: Reports: Shortness of Breath. Denies: Cough Cardiovascular: Reports: No Symptoms Endocrine: Reports: No Symptoms GI/Abdominal: Reports: Abdominal Pain, Diarrhea, Nausea. Denies: Vomiting : Reports: No Symptoms Musculoskeletal: Reports: No Symptoms Skin: Reports: No Symptoms ED EXAM, GI/ABD - Physical Exam Exam: See Below Exam Limited By: No Limitations General Appearance: Alert, No Apparent Distress Ears: Normal External Exam Nose: Normal Inspection Head: Atraumatic, Normocephalic Neck: Normal Inspection, Supple, Non-Tender Respiratory/Chest: No Respiratory Distress, Lungs Clear, Normal Breath Sounds Cardiovascular: Regular Rate, Rhythm, No Edema, No Murmur GI/Abdominal Exam: Soft, No Organomegaly, No Mass, Tender (mild generalized tenderness) Course - Vital Signs Last Recorded V/S: Last Vital Signs Temp 97.8 F 02/13/20 09:00 Pulse 74 02/13/20 09:00 Resp 18 02/13/20 09:00 BP 144/103 H 02/13/20 09:00 Pulse Ox 98 02/13/20 09:00 - Orders/Labs/Meds Orders: Active Orders 24 hr Category Date Time Status Peripheral IV Care [RC] . DIRECTED Care 02/13/20 09:22 Active CORONAVIRUS COVID-19 PCR PHL Stat Lab 02/13/20 10:10 Ordered Sodium Chloride 0.9% [Saline Flush] Med 02/13/20 09:22 Active 10 ml FLUSH ASDIRECTED PRN ED Antiemetic Medication Reflex [OM.PC] Stat Oth 02/13/20 09:22 Ordered Peripheral IV Insertion Adult [OM.PC] Stat Ot 02/13/20 09:22 Ordered Medication Orders Sodium Chloride (Saline Flush) 10 ml FLUSH ASDIRECTED PRN PRN Reason: Keep Vein Open Last Admin: 02/13/20 09:40 Dose: 10 ml Documented by: CAROLANN Labs: Laboratory Tests 02/13/20 02/13/20 02/13/20 Range/Units 09:43 09:43 09:43 WBC 6.23 (3.98-10.04) K/mm3 RBC 4.49 (3.98-5.22) M/mm3 Hgb 14.6 (11.2-15.7) gm/dl Hct 43.9 (34.1-44.9) % MCV 97.8 H (79.4-94.8) fl MCH 32.5 H (25.6-32.2) pg MCHC 33.3 (32.2-35.5) g/dl RDW Std Deviation 44.1 (36.4-46.3) fL Plt Count 213 (182-369) K/mm3 MPV 10.2 (9.4-12.3) fl Neut % (Auto) 74.4 H (34.0-71.1) % Lymph % (Auto) 16.5 L (19.3-51.7) % [place] % (Auto) 8.2 (4.7-12.5) % Eos % (Auto) 0.5 L (0.7-5.8) Baso % (Auto) 0.2 (0.1-1.2) % Neut # (Auto) 4.64 (1.56-6.13) K/mm3 Lymph # (Auto) 1.03 L (1.18-3.74) K/mm3 [place] # (Auto) 0.51 H (0.24-0.36) K/mm3 Eos # (Auto) 0.03 L (0.04-0.36) K/mm3 Baso # (Auto) 0.01 (0.01-0.08) K/mm3 Sodium 141 (136-145) mEq/L Potassium 3.9 (3.5-5.1) mEq/L Chloride 103 (98-107) mEq/L Carbon Dioxide 26 (21-32) mEq/L Anion Gap 15.9 H (5-15) BUN 13 (7-18) mg/dL Creatinine 1.0 (0.55-1.02) mg/dL Est Cr Clr Drug Dosing 71.14 mL/min Estimated GFR (MDRD) > 60 (>60) mL/min BUN/Creatinine Ratio 13.0 L (14-18) Glucose 126 H (74-106) mg/dL Calcium 9.6 (8.5-10.1) mg/dL Total Bilirubin 0.4 (0.2-1.0) mg/dL AST 18 (15-37) U/L ALT 20 (14-59) U/L Alkaline Phosphatase 67 (46-116) U/L Total Protein 7.6 (6.4-8.2) g/dl Albumin 3.8 (3.4-5.0) g/dl Globulin 3.8 gm/dL Albumin/Globulin Ratio 1.0 (1-2) Lipase 102 (73-393) U/L HCG, Qual Negative (NEGATIVE) Meds: Medications Generic Name Dose Route Start Last Admin Trade Name Freq PRN Reason Stop Dose Admin Sodium Chloride 10 ml 02/13/20 09:22 02/13/20 09:40 Saline Flush FLUSH 10 ml ASDIRECTED PRN Administration Keep Vein Open Discontinued Medications Generic Name Dose Route Start Last Admin Trade Name Freq PRN Reason Stop Dose Admin Sodium Chloride 1,000 mls @ 1,000 mls/hr 02/13/20 09:22 02/13/20 09:42 Normal Saline IV 02/13/20 10:21 1,000 mls/hr .BOLUS STA Administration Ondansetron HCl 4 mg 02/13/20 09:22 02/13/20 09:40 Zofran IVPUSH 02/13/20 09:23 4 mg ONETIME ONE Administration - Re-Assessments/Exams Free Text/Narrative Re-Assessment/Exam: 02/13/20 09:33 I ordered an IV NS 1L bolus, zofran 4mg IV, labs, HCG and COVID 19 test. 02/13/20 11:05 Her CBC and CMP look good. Her lipase is normal. Her HCG is negative. 02/13/20 11:11 She feels better. I will discharge her home and have her quarantine pending results of the COVID 19. Departure - Departure Time of Disposition: 11:15 Disposition: Home, Self-Care 01 Condition: Good Clinical Impression: Diarrhea Nausea and vomiting Qualifiers: Vomiting type: bilious vomiting Qualified Code(s): R11.14 - Bilious vomiting Abdominal pain Qualifiers: Abdominal location: generalized Qualified Code(s): R10.84 - Generalized abdominal pain - Discharge Information *PRESCRIPTION DRUG MONITORING PROGRAM REVIEWED*: Not Applicable *COPY OF PRESCRIPTION DRUG MONITORING REPORT IN PATIENT REGINO: Not Applicable Referrals: Cathie Lake PA-C [Primary Care Provider] - Forms: ED Department Discharge Additional Instructions: Drink plenty of fluids. Take zofran every 6hrs as needed for nausea and vomiting. Quarantine for the next few days until we know your COVID 19 results. Please return if you are worse. Sepsis Event Note (ED) - Evaluation Sepsis Screening Result: No Definite Risk - Focused Exam Vital Signs: Vital Signs Temp Pulse Resp BP Pulse Ox 02/13/20 09:00 97.8 F 74 18 144/103 H 98 - My Orders Last 24 Hours: My Active Orders 02/13/20 09:22 Peripheral IV Care [RC] . DIRECTED Sodium Chloride 0.9% [Saline Flush] 10 ml FLUSH ASDIRECTED PRN ED Antiemetic Medication Reflex [OM.PC] Stat Peripheral IV Insertion Adult [OM.PC] Stat 02/13/20 10:10 CORONAVIRUS COVID-19 PCR PHL Stat - Assessment/Plan Last 24 Hours: My Active Orders 02/13/20 09:22 Peripheral IV Care [RC] . DIRECTED Sodium Chloride 0.9% [Saline Flush] 10 ml FLUSH ASDIRECTED PRN ED Antiemetic Medication Reflex [OM.PC] Stat Peripheral IV Insertion Adult [OM.PC] Stat 02/13/20 10:10 CORONAVIRUS COVID-19 PCR PHL Stat
[2020-02-13 11:57] VITALS: BP 120/75; PULSE 62
== END 2020-02-13 11:55 | disposition home or self-care (01) ==
LOC: JD.ED 08:46
DX: R10.84 Generalized abdominal pain (principal); R19.7 Diarrhea, unspecified; R11.14 Bilious vomiting; F41.9 Anxiety disorder, unspecified; F32.9 Major depressive disorder, single episode, unspecified; J45.909 Unspecified asthma, uncomplicated; Z79.899 Other long term (current) drug therapy; Z20.828 Contact with and (suspected) exposure to other viral communicable diseases
CPT/HCPCS: 36415; 80053; 83690; 84703; 85025; 87635; 96374; 99284; J2405; J7030; U0002

== ENCOUNTER 2020-05-13 16:03 | Emergency (ER) | payer MEDICAID ==
[2020-05-13 16:16] VITALS: BP 126/68; PULSE 131
[2020-05-13] MEDS ORDERED: Sodium Chloride 0.9% 10 ML Syringe FLUSH PRN (16:40)
[2020-05-13] MEDS ORDERED: Ondansetron 4 MG/2 ML SDV IVPUSH ONE (16:40)
[2020-05-13] MEDS ORDERED: Sodium Chloride 0.9% 1,000 ML IV SCH (16:45)
--- NOTE | 2020-05-13 16:48 | EDM.PDOC ---
ED HPI GENERAL MEDICAL PROBLEM - General Chief Complaint: Abdominal Pain Stated Complaint: VOMITING/DIZZY/DIARRHEA Time Seen by Provider: 05/13/20 16:18 Source of Information: Reports: Patient, RN Notes Reviewed History Limitations: Reports: No Limitations - History of Present Illness INITIAL COMMENTS - FREE TEXT/NARRATIVE: Patient is a 24-year-old female who presents to the ED for evaluation of her GI symptoms. Patient notes that abruptly at 11 AM this morning, she developed abdominal pain, nausea, vomiting and explosive diarrhea. She states that she has not been able to keep anything down for fluids since 11 AM. She has tried water, Gatorade, Pepto-Bismol, and Tylenol for her pain and nothing seems to really be hitting much of it at all. She does note that [facility] and that there is a "stomach bug" going around, so she is not sure if she could have been in contact with someone like this. Of note we did get information also that COVID-19 was present within the last week or so as well. Patient notes that she was tested for COVID-19 last week and it was negative. Patient notes that the pain is constant, nothing seems to really make it better or worse however when he put direct pressure on it it seems to make the pain worse. She states this is generalized all over, mainly in her upper abdomen but with direct palpation it seems to localize in her right lower quadrant. She denies any fevers, but states she has felt chilled, she has had no cough or shortness of breath. Abdomen Pain Score (Numeric/FACES): 9 - Related Data Allergies Allergy/AdvReac Type Severity Reaction Status Date / Time No Known Allergies Allergy Verified 05/13/20 16:15 Home Meds: Home Meds Albuterol Sulfate [Albuterol Sulfate Hfa] 2 puff INH Q4H PRN 12/29/19 [History] Budesonide/Formoterol Fumarate [Symbicort 80-4.5 MCG] 2 puff IH BID #1 inhaler 12/29/19 [Rx] Lurasidone [Latuda] 20 mg PO DAILY 05/13/20 [History] Ondansetron [Zofran ODT] 4 mg PO Q8H PRN #15 tab.dis 05/13/20 [Rx] Past Medical History Respiratory History: Reports: Asthma Gastrointestinal History: Reports: GERD Genitourinary History: Reports: UTI, Recurrent 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 Social & Family History - Family History Family Medical History: No Pertinent Family History - Tobacco Use Tobacco Use Status *Q: Never Tobacco User - Caffeine Use Caffeine Use: Reports: Soda, Tea - Recreational Drug Use Recreational Drug Use: No - Living Situation & Occupation Living situation: Reports: Occupation: Employed ED ROS GENERAL - Review of Systems Review Of Systems: Comprehensive ROS is negative, except as noted in HPI. ED EXAM, GI/ABD - Physical Exam Exam: See Below Exam Limited By: No Limitations General Appearance: Alert, WD/WN, No Apparent Distress Respiratory/Chest: No Respiratory Distress, Lungs Clear, Normal Breath Sounds, No Accessory Muscle Use, Chest Non-Tender Cardiovascular: Normal Peripheral Pulses, Regular Rate, Rhythm, No Edema GI/Abdominal Exam: Normal Bowel Sounds, Soft, No Distention, No Mass, Tender (generalized tenderness, McBurney's point is positive.) Extremities: Normal Inspection, Normal Capillary Refill Neurological: Alert, Oriented, Normal Cognition, No Motor/Sensory Deficits Psychiatric: Normal Affect, Normal Mood Skin Exam: Warm, Dry, Intact, Normal Color, No Rash Course - Vital Signs Last Recorded V/S: Last Vital Signs Temp 96.9 F 05/13/20 16:13 Pulse 131 H 05/13/20 16:13 Resp 18 05/13/20 16:13 BP 126/68 05/13/20 16:13 Pulse Ox 97 05/13/20 16:13 - Orders/Labs/Meds Orders: Active Orders 24 hr Category Date Time Status CORONAVIRUS COVID-19 PCR PHL Stat Lab 05/13/20 20:30 Received Peripheral IV Insertion Adult [OM.PC] Routine Oth 05/13/20 16:40 Ordered Labs: Laboratory Tests 05/13/20 05/13/20 05/13/20 Range/Units 16:55 16:55 16:55 WBC 16.10 H (3.98-10.04) K/mm3 RBC 5.17 (3.98-5.22) M/mm3 Hgb 16.5 H D (11.2-15.7) gm/dl Hct 47.2 H (34.1-44.9) % MCV 91.3 D (79.4-94.8) fl MCH 31.9 (25.6-32.2) pg MCHC 35.0 (32.2-35.5) g/dl RDW Std Deviation 41.7 (36.4-46.3) fL Plt Count 219 (182-369) K/mm3 MPV 9.9 (9.4-12.3) fl Neutrophils % (Manual) 89 H (40-60) % Band Neutrophils % 0 (0-10) % Lymphocytes % (Manual) 6 L (20-40) % Atypical Lymphs % 0 % Monocytes % (Manual) 5 (2-10) % Eosinophils % (Manual) 0 L (0.7-5.8) % Basophils % (Manual) 0 L (0.1-1.2) Platelet Estimate Adequate RBC Morph Comment Normal Sodium 138 (136-145) mEq/L Potassium 4.2 (3.5-5.1) mEq/L Chloride 100 (98-107) mEq/L Carbon Dioxide 21 (21-32) mEq/L Anion Gap 21.2 H (5-15) BUN 22 H (7-18) mg/dL Creatinine 1.0 (0.55-1.02) mg/dL Est Cr Clr Drug Dosing 71.14 mL/min Estimated GFR (MDRD) > 60 (>60) mL/min BUN/Creatinine Ratio 22.0 H (14-18) Glucose 140 H (74-106) mg/dL Calcium 9.0 (8.5-10.1) mg/dL Total Bilirubin 0.9 (0.2-1.0) mg/dL AST 30 (15-37) U/L ALT 38 (14-59) U/L Alkaline Phosphatase 87 (46-116) U/L C-Reactive Protein 0.9 (<1.0) mg/dL Total Protein 8.4 H (6.4-8.2) g/dl Albumin 4.3 (3.4-5.0) g/dl Globulin 4.1 gm/dL Albumin/Globulin Ratio 1.1 (1-2) Lipase 62 L (73-393) U/L HCG, Qual Negative (NEGATIVE) Urine Color (Yellow) Urine Appearance (Clear) Urine pH (5.0-8.0) Ur Specific [place] (1.005-1.030) Urine Protein (Negative) Urine Glucose (UA) (Negative) Urine Ketones (Negative) Urine Occult Blood (Negative) Urine Nitrite (Negative) Urine Bilirubin (Negative) Urine Urobilinogen (0.2-1.0) Ur Leukocyte Esterase (Negative) Urine RBC (0-5) /hpf Urine WBC (0-5) /hpf Ur Squamous Epith Cells (0-5) /hpf Urine Bacteria (FEW) /hpf Urine Mucus (FEW) /hpf 05/13/20 Range/Units 17:45 WBC (3.98-10.04) K/mm3 RBC (3.98-5.22) M/mm3 Hgb (11.2-15.7) gm/dl Hct (34.1-44.9) % MCV (79.4-94.8) fl MCH (25.6-32.2) pg MCHC (32.2-35.5) g/dl RDW Std Deviation (36.4-46.3) fL Plt Count (182-369) K/mm3 MPV (9.4-12.3) fl Neutrophils % (Manual) (40-60) % Band Neutrophils % (0-10) % Lymphocytes % (Manual) (20-40) % Atypical Lymphs % % Monocytes % (Manual) (2-10) % Eosinophils % (Manual) (0.7-5.8) % Basophils % (Manual) (0.1-1.2) Platelet Estimate RBC Morph Comment Sodium (136-145) mEq/L Potassium (3.5-5.1) mEq/L Chloride (98-107) mEq/L Carbon Dioxide (21-32) mEq/L Anion Gap (5-15) BUN (7-18) mg/dL Creatinine (0.55-1.02) mg/dL Est Cr Clr Drug Dosing mL/min Estimated GFR (MDRD) (>60) mL/min BUN/Creatinine Ratio (14-18) Glucose (74-106) mg/dL Calcium (8.5-10.1) mg/dL Total Bilirubin (0.2-1.0) mg/dL AST (15-37) U/L ALT (14-59) U/L Alkaline Phosphatase (46-116) U/L C-Reactive Protein (<1.0) mg/dL Total Protein (6.4-8.2) g/dl Albumin (3.4-5.0) g/dl Globulin gm/dL Albumin/Globulin Ratio (1-2) Lipase (73-393) U/L HCG, Qual (NEGATIVE) Urine Color Yellow (Yellow) Urine Appearance Clear (Clear) Urine pH 6.0 (5.0-8.0) Ur Specific [place] > or = 1.030 (1.005-1.030) Urine Protein Negative (Negative) Urine Glucose (UA) Negative (Negative) Urine Ketones 1+ H (Negative) Urine Occult Blood Negative (Negative) Urine Nitrite Negative (Negative) Urine Bilirubin Negative (Negative) Urine Urobilinogen 0.2 (0.2-1.0) Ur Leukocyte Esterase Negative (Negative) Urine RBC 0-5 (0-5) /hpf Urine WBC 0-5 (0-5) /hpf Ur Squamous Epith Cells 0-5 (0-5) /hpf Urine Bacteria Moderate H (FEW) /hpf Urine Mucus Moderate H (FEW) /hpf Meds: Medications Discontinued Medications Generic Name Dose Route Start Last Admin Trade Name Davidq PRN Reason Stop Dose Admin Sodium Chloride 1,000 mls @ 999 mls/hr 05/13/20 16:45 05/13/20 16:55 Normal Saline IV 999 mls/hr ASDIRECTED PRASANNA Administration Sodium Chloride 1,000 mls @ 999 mls/hr 05/13/20 17:46 05/13/20 18:25 Normal Saline IV 05/13/20 18:46 999 mls/hr ONETIME ONE Administration Iopamidol 100 ml 05/13/20 19:33 05/13/20 19:50 Isovue-300 (61%) IVPUSH 05/13/20 19:34 100 ml ONETIME ONE Administration Ondansetron HCl 4 mg 05/13/20 16:40 05/13/20 16:54 Zofran IVPUSH 05/13/20 16:41 4 mg ONETIME ONE Administration Ondansetron HCl 4 mg 05/13/20 20:12 05/13/20 20:27 Zofran Odt PO 05/13/20 20:13 4 mg ONETIME ONE Administration Sodium Chloride 10 ml 05/13/20 16:40 05/13/20 16:53 Saline Flush FLUSH 10 ml ASDIRECTED PRN Administration Keep Vein Open Sodium Chloride 10 ml 05/13/20 19:45 05/13/20 19:50 Saline Flush FLUSH 10 ml BOLUS PRASANNA Administration - Re-Assessments/Exams Free Text/Narrative Re-Assessment/Exam: 05/13/20 16:46 Patient presents to the ED for her generalized abdomen pain, nausea/vomiting/diarrhea. This all seemed to start quite suddenly today. We will get baseline labs, start IV get her some nausea meds, some IV fluids patient states that she is on her menses so she does not believe she could be at this time. We will wait for her hCG to come back and then discuss imaging. I am concerned as she is quite tender in her right lower quadrant, that it could be her appendix causing some of the issues. 05/13/20 17:48 Patient's labs have started to result, white count is elevated at 16.10, manual differential still pending at this time. Anion gap is markedly elevated at 21.2, CRP is at that upper limits of normal at 0.9. All other lab values seem to be unremarkable at this time. Still awaiting hCG and urinalysis. 05/13/20 18:33 Due to the patient's laboratory findings, I did give her the option for a CT versus no CT for evaluation of her appendix. Patient's hCG test was negative, she will opt for the CT to make sure that it is not in fact appendicitis. 05/13/20 20:08 CT has been done, demonstrates no sign of appendicitis. There are no other acute focal abnormalities. For today's purposes we will do a state send out test for COVID-19 and have her try to [facility] and give her some medications like Zofran for her nausea and have her stick to clear liquid diet for the next 24 to 48 hours advance to bland as tolerated. Departure - Departure Time of Disposition: 20:11 Disposition: Home, Self-Care 01 Condition: Good Clinical Impression: Gastroenteritis - Discharge Information *PRESCRIPTION DRUG MONITORING PROGRAM REVIEWED*: No *COPY OF PRESCRIPTION DRUG MONITORING REPORT IN PATIENT REGINO: No Prescriptions: Ondansetron [Zofran ODT] 4 mg PO Q8H PRN #15 tab.dis PRN Reason: Nausea Instructions: Food Choices to Help Relieve Diarrhea, Adult Referrals: Cathie Lake PA-C [Primary Care Provider] - Forms: ED Department Discharge Additional Instructions: You have been evaluated in the ED for nausea/vomiting/diarrhea. It is likely that this is caused from a viral gastroenteritis. However you have been swabbed for COVID-19 at today's visit, this is a public health send out test, and may take up to 3-5 business days to get results. Highly recommend that when you [facility] back to the [facility], try to self quarantine as much as possible until you can get your results from the state. You have received IV fluid in the ED to help with the dehydration from the vomiting and diarrhea. Over the next 24-48 hours please try to limit diet to clear liquids and advance as tolerate to a bland diet to alleviate symptoms of nausea/vomiting/diarrhea. Please use the Zofran every 8 hours as needed for nausea. Your CT demonstrated no sign of appendicitis. Laboratory evaluation was consistent with dehydration and acute stress reaction as your white cell count was mildly elevated which can be elevated in times where we are having nausea/vomiting/diarrhea. Please return to the ED if your symptoms should change or worsen. Sepsis Event Note (ED) - Evaluation Sepsis Screening Result: No Definite Risk - Focused Exam Vital Signs: Vital Signs Temp Pulse Resp BP Pulse Ox 05/13/20 16:13 96.9 F 131 H 18 126/68 97 - My Orders Last 24 Hours: My Active Orders 05/13/20 16:40 Peripheral IV Insertion Adult [OM.PC] Routine 05/13/20 20:30 CORONAVIRUS COVID-19 PCR PHL Stat - Assessment/Plan Last 24 Hours: My Active Orders 05/13/20 16:40 Peripheral IV Insertion Adult [OM.PC] Routine 05/13/20 20:30 CORONAVIRUS COVID-19 PCR PHL Stat
[2020-05-13] MEDS ORDERED: Sodium Chloride 0.9% 1,000 ML IV ONE (17:46)
[2020-05-13] MEDS ORDERED: Iopamidol 612 MG/ML 100 ML Bottle IVPUSH ONE (19:33)
[2020-05-13] MEDS ORDERED: Sodium Chloride 0.9% 10 ML Syringe FLUSH SCH (19:45)
[2020-05-13] MEDS ORDERED: Ondansetron 4 MG Tab.DIS PO ONE (20:12)
--- NOTE | 2020-05-13 20:13 | CT ---
CT abdomen and pelvis Technique: Multiple axial sections were obtained from above the dome of the diaphragm inferiorly through the pubic symphysis. Intravenous and oral contrast was utilized. Delayed images were also obtained through the abdomen and pelvis. Reconstructed coronal and sagittal images were also obtained. Comparison: No prior abdominal imaging is available. Findings: Visualized lung bases show nothing acute. Liver contains no focal abnormality. Spleen appears within normal limits. Adrenal glands show no nodule. Pancreas appears within normal limits. Gallbladder contains no calcified gallstones. Kidneys show symmetric contrast enhancement without hydronephrosis or mass. Abdominal aorta shows no aneurysm. No retroperitoneal adenopathy is identified. No mesenteric abnormalities are appreciated. Appendix is seen and is normal in size. No pelvic mass or adenopathy is identified. Delayed images show contrast throughout the ureters as well as within the bladder. Bone window settings were reviewed which appear within normal limits for the patient's age. Impression: 1. Nothing acute is seen on CT study of the abdomen and pelvis. Diagnostic code #1
== END 2020-05-13 20:30 | disposition home or self-care (01) ==
LOC: JD.ED 16:03
DX: U07.1 COVID-19 (principal); A08.39 Other viral enteritis; J45.909 Unspecified asthma, uncomplicated
CPT/HCPCS: 36415; 74177; 80053; 81001; 83690; 84703; 85007; 85027; 86140; 87635; 96374; 99284; A9270; J2405; J7030; Q9967; 99283; U0002

== ENCOUNTER 2020-06-04 19:22 | Emergency (ER) | payer MEDICAID ==
--- NOTE | 2020-06-04 19:36 | EDM.PDOC ---
ED HPI GENERAL MEDICAL PROBLEM - General Chief Complaint: Drug or Alcohol Abuse Stated Complaint: [facility] Time Seen by Provider: 06/04/20 19:22 - History of Present Illness INITIAL COMMENTS - FREE TEXT/NARRATIVE: 24-year-old female brought in by EMS with a history of ingesting too many pills and being sedated. Patient resides over at [facility]. She was noted to be extremely tired she was holding her child and was asleep. They reviewed her medications and thought that maybe she took about 15 gabapentin and a few extra of her Xanax. Her Xanax was filled today 9 tablets are missing of the 1 mg tablets her gabapentin was filled yesterday 29 tablets missing of the 300 mg tablets. The patient is a little confused but she is quick to answer questions. She denies any wishes to hurt herself or anybody else certainly is not suicidal she explains that she thought the Xanax was 1 or 2 tablets every 6 hours rather than the half a tablet every 6 hours. The patient's grandfather recently and this is causing her a lot of insomnia and stress. Patient is currently treated for bipolar illness. - Related Data Allergies Allergy/AdvReac Type Severity Reaction Status Date / Time No Known Allergies Allergy Verified 06/04/20 19:37 Home Meds: Home Meds Albuterol Sulfate [Albuterol Sulfate Hfa] 2 puff INH Q4H PRN 12/29/19 [History] Budesonide/Formoterol Fumarate [Symbicort 80-4.5 MCG] 2 puff IH BID #1 inhaler 12/29/19 [Rx] Lurasidone [Latuda] 20 mg PO DAILY 05/13/20 [History] Ondansetron [Zofran ODT] 4 mg PO Q8H PRN #15 tab.dis 05/13/20 [Rx] ALPRAZolam [Xanax] 0.05 mg PO QID PRN MDD 2mg 06/04/20 [History] Gabapentin [Neurontin] 300 mg PO BID MDD 900mg 06/04/20 [History] Past Medical History Respiratory History: Reports: Asthma Gastrointestinal History: Reports: GERD Genitourinary History: Reports: UTI, Recurrent 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 Social & Family History - Family History Family Medical History: No Pertinent Family History - Caffeine Use Caffeine Use: Reports: Soda, Tea - Living Situation & Occupation Living situation: Reports: Occupation: Employed ED ROS GENERAL - Review of Systems Review Of Systems: See Below Constitutional: Reports: No Symptoms HEENT: Reports: No Symptoms Respiratory: Reports: No Symptoms Cardiovascular: Reports: No Symptoms GI/Abdominal: Reports: No Symptoms : Reports: No Symptoms Musculoskeletal: Reports: No Symptoms Skin: Reports: No Symptoms Neurological: Reports: Other (Answers questions appropriately and is acting normal sometimes she gets her thoughts a little crossed up when trying to explain what her understanding of her medication doses was) Psychiatric: Denies: Homicidal Ideation, Mood Lability, Suicidal Ideation Hematologic/Lymphatic: Reports: No Symptoms Immunologic: Reports: No Symptoms ED EXAM, GENERAL - Physical Exam Exam: See Below Exam Limited By: No Limitations General Appearance: Alert, No Apparent Distress Eye Exam: Bilateral Eye: EOMI, Normal Inspection, PERRL Ears: Normal External Exam, Normal Canal, Hearing Grossly Normal, Normal TMs Nose: Normal Inspection, Normal Mucosa, No Blood Throat/Mouth: Normal Inspection, Normal Lips, Normal Teeth, Normal Gums, Normal Oropharynx, Normal Voice, No Airway Compromise Neck: Normal Inspection, Supple, Non-Tender, Full Range of Motion. No: Lymphadenopathy (L), Lymphadenopathy (R) Respiratory/Chest: No Respiratory Distress, Lungs Clear, Normal Breath Sounds, No Accessory Muscle Use, Chest Non-Tender Cardiovascular: Normal Peripheral Pulses, Regular Rate, Rhythm, No Edema GI/Abdominal: Normal Bowel Sounds, Soft, Non-Tender Back Exam: Normal Inspection. No: CVA Tenderness (L), CVA Tenderness (R) Extremities: Normal Inspection, No Pedal Edema Neurological: Alert, Oriented, Normal Cognition Psychiatric: Normal Affect, Normal Mood Skin Exam: Warm, Dry, Intact Lymphatic: No Adenopathy Course - Vital Signs Last Recorded V/S: Last Vital Signs Temp 36.2 C 06/04/20 19:24 Pulse 81 06/04/20 19:24 Resp 14 06/04/20 19:24 BP 139/91 H 06/04/20 19:24 Pulse Ox 100 06/04/20 19:24 - Orders/Labs/Meds Orders: Active Orders 24 hr Category Date Time Status EKG Documentation Completion [RC] STAT Care 06/04/20 19:53 Active CULTURE URINE [RM] Stat Lab 06/04/20 21:46 Received Labs: Laboratory Tests 06/04/20 06/04/20 06/04/20 Range/Units 20:12 20:12 20:12 WBC 5.04 (3.98-10.04) K/mm3 RBC 4.25 (3.98-5.22) M/mm3 Hgb 13.3 D (11.2-15.7) gm/dl Hct 39.9 (34.1-44.9) % MCV 93.9 (79.4-94.8) fl MCH 31.3 (25.6-32.2) pg MCHC 33.3 (32.2-35.5) g/dl RDW Std Deviation 42.4 (36.4-46.3) fL Plt Count 168 L (182-369) K/mm3 MPV 9.8 (9.4-12.3) fl Neut % (Auto) 51.2 (34.0-71.1) % Lymph % (Auto) 35.5 (19.3-51.7) % Amador % (Auto) 11.1 (4.7-12.5) % Eos % (Auto) 2.0 (0.7-5.8) Baso % (Auto) 0.2 (0.1-1.2) % Neut # (Auto) 2.58 (1.56-6.13) K/mm3 Lymph # (Auto) 1.79 (1.18-3.74) K/mm3 Amador # (Auto) 0.56 H (0.24-0.36) K/mm3 Eos # (Auto) 0.10 (0.04-0.36) K/mm3 Baso # (Auto) 0.01 (0.01-0.08) K/mm3 PT 11.2 (9.7-12.0) SECONDS INR 1.05 Puncture Site ABG pH (7.35-7.45) ABG pCO2 (35.0-45.0) mmHg ABG pO2 (80.0-100.0) mmHg ABG HCO3 (22.0-26.0) meq/L ABG O2 Saturation (96.0-97.0) % ABG Base Excess (-2-2.0) Jerel Test A-a Gradient mmHg O2 Delivery Device Oxygen Flow Rate FiO2 (21.00-100.00) % Blood Gas Comments Sodium 141 (136-145) mEq/L Potassium 3.6 (3.5-5.1) mEq/L Chloride 103 (98-107) mEq/L Carbon Dioxide 27 (21-32) mEq/L Anion Gap 14.6 (5-15) BUN 15 (7-18) mg/dL Creatinine 0.8 (0.55-1.02) mg/dL Est Cr Clr Drug Dosing 88.93 mL/min Estimated GFR (MDRD) > 60 (>60) mL/min BUN/Creatinine Ratio 18.8 H (14-18) Glucose 86 (74-106) mg/dL Calcium 8.8 (8.5-10.1) mg/dL Total Bilirubin 0.4 (0.2-1.0) mg/dL AST 18 (15-37) U/L ALT 25 (14-59) U/L Alkaline Phosphatase 83 (46-116) U/L Total Protein 6.9 (6.4-8.2) g/dl Albumin 3.5 (3.4-5.0) g/dl Globulin 3.4 gm/dL Albumin/Globulin Ratio 1.0 (1-2) Urine Color (Yellow) Urine Appearance (Clear) Urine pH (5.0-8.0) Ur Specific [place] (1.005-1.030) Urine Protein (Negative) Urine Glucose (UA) (Negative) Urine Ketones (Negative) Urine Occult Blood (Negative) Urine Nitrite (Negative) Urine Bilirubin (Negative) Urine Urobilinogen (0.2-1.0) Ur Leukocyte Esterase (Negative) Urine RBC (0-5) /hpf Urine WBC (0-5) /hpf Ur Squamous Epith Cells (0-5) /hpf Urine Bacteria (FEW) /hpf Urine Mucus (FEW) /hpf Salicylates (2.8-20) mg/dL Urine Opiates Screen (KGEJDG=500) Ur Buprenorphine Scrn (CUTOFF=10) Ur Oxycodone Screen (YBY0IX=414) Urine Methadone Screen (MFGBLC=030) Ur Propoxyphene Screen (LREFSO=241) Acetaminophen 0 L (10-30) ug/mL Ur Barbiturates Screen (GLODCM=604) Ur Tricyclics Screen (BTTAYG=612) Ur Phencyclidine Scrn (CUTOFF=25) Ur Amphetamine Screen (ZEWZTJ=501) U Methamphetamines Scrn (GIABRF=521) U Benzodiazepines Scrn (ZIWCLS=882) U Cocaine Metab Screen (QDSHJV=106) U Marijuana (THC) Screen (CUTOFF=50) Ethyl Alcohol 0.00 (0.00) gm% 06/04/20 06/04/20 06/04/20 Range/Units 20:12 20:23 21:46 WBC (3.98-10.04) K/mm3 RBC (3.98-5.22) M/mm3 Hgb (11.2-15.7) gm/dl Hct (34.1-44.9) % MCV (79.4-94.8) fl MCH (25.6-32.2) pg MCHC (32.2-35.5) g/dl RDW Std Deviation (36.4-46.3) fL Plt Count (182-369) K/mm3 MPV (9.4-12.3) fl Neut % (Auto) (34.0-71.1) % Lymph % (Auto) (19.3-51.7) % Amador % (Auto) (4.7-12.5) % Eos % (Auto) (0.7-5.8) Baso % (Auto) (0.1-1.2) % Neut # (Auto) (1.56-6.13) K/mm3 Lymph # (Auto) (1.18-3.74) K/mm3 Amador # (Auto) (0.24-0.36) K/mm3 Eos # (Auto) (0.04-0.36) K/mm3 Baso # (Auto) (0.01-0.08) K/mm3 PT (9.7-12.0) SECONDS INR Puncture Site Lt radial ABG pH 7.36 (7.35-7.45) ABG pCO2 47.4 H (35.0-45.0) mmHg ABG pO2 35.0 L* (80.0-100.0) mmHg ABG HCO3 26.0 (22.0-26.0) meq/L ABG O2 Saturation 70.4 L (96.0-97.0) % ABG Base Excess 0.5 (-2-2.0) Jerel Test Positive A-a Gradient 56 mmHg O2 Delivery Device Room air Oxygen Flow Rate 0.0 FiO2 21.00 (21.00-100.00) % Blood Gas Comments Venous draw, md arriola Sodium (136-145) mEq/L Potassium (3.5-5.1) mEq/L Chloride (98-107) mEq/L Carbon Dioxide (21-32) mEq/L Anion Gap (5-15) BUN (7-18) mg/dL Creatinine (0.55-1.02) mg/dL Est Cr Clr Drug Dosing mL/min Estimated GFR (MDRD) (>60) mL/min BUN/Creatinine Ratio (14-18) Glucose (74-106) mg/dL Calcium (8.5-10.1) mg/dL Total Bilirubin (0.2-1.0) mg/dL AST (15-37) U/L ALT (14-59) U/L Alkaline Phosphatase (46-116) U/L Total Protein (6.4-8.2) g/dl Albumin (3.4-5.0) g/dl Globulin gm/dL Albumin/Globulin Ratio (1-2) Urine Color Yellow (Yellow) Urine Appearance Clear (Clear) Urine pH 7.5 (5.0-8.0) Ur Specific [place] 1.025 (1.005-1.030) Urine Protein Negative (Negative) Urine Glucose (UA) Negative (Negative) Urine Ketones Negative (Negative) Urine Occult Blood Negative (Negative) Urine Nitrite Negative (Negative) Urine Bilirubin Negative (Negative) Urine Urobilinogen 0.2 (0.2-1.0) Ur Leukocyte Esterase Trace H (Negative) Urine RBC 0-5 (0-5) /hpf Urine WBC 0-5 (0-5) /hpf Ur Squamous Epith Cells 0-5 (0-5) /hpf Urine Bacteria Moderate H (FEW) /hpf Urine Mucus Not seen (FEW) /hpf Salicylates 0.3 L (2.8-20) mg/dL Urine Opiates Screen (KPWDQP=585) Ur Buprenorphine Scrn (CUTOFF=10) Ur Oxycodone Screen (FAX0VU=819) Urine Methadone Screen (JRFUNN=577) Ur Propoxyphene Screen (QRDNAE=428) Acetaminophen (10-30) ug/mL Ur Barbiturates Screen (HQMRXI=106) Ur Tricyclics Screen (DDUTPC=710) Ur Phencyclidine Scrn (CUTOFF=25) Ur Amphetamine Screen (ANCUYX=989) U Methamphetamines Scrn (ALAPIL=033) U Benzodiazepines Scrn (FFULGE=621) U Cocaine Metab Screen (GHKNXU=269) U Marijuana (THC) Screen (CUTOFF=50) Ethyl Alcohol (0.00) gm% 06/04/20 Range/Units 21:46 WBC (3.98-10.04) K/mm3 RBC (3.98-5.22) M/mm3 Hgb (11.2-15.7) gm/dl Hct (34.1-44.9) % MCV (79.4-94.8) fl MCH (25.6-32.2) pg MCHC (32.2-35.5) g/dl RDW Std Deviation (36.4-46.3) fL Plt Count (182-369) K/mm3 MPV (9.4-12.3) fl Neut % (Auto) (34.0-71.1) % Lymph % (Auto) (19.3-51.7) % Amador % (Auto) (4.7-12.5) % Eos % (Auto) (0.7-5.8) Baso % (Auto) (0.1-1.2) % Neut # (Auto) (1.56-6.13) K/mm3 Lymph # (Auto) (1.18-3.74) K/mm3 Amador # (Auto) (0.24-0.36) K/mm3 Eos # (Auto) (0.04-0.36) K/mm3 Baso # (Auto) (0.01-0.08) K/mm3 PT (9.7-12.0) SECONDS INR Puncture Site ABG pH (7.35-7.45) ABG pCO2 (35.0-45.0) mmHg ABG pO2 (80.0-100.0) mmHg ABG HCO3 (22.0-26.0) meq/L ABG O2 Saturation (96.0-97.0) % ABG Base Excess (-2-2.0) Jerel Test A-a Gradient mmHg O2 Delivery Device Oxygen Flow Rate FiO2 (21.00-100.00) % Blood Gas Comments Sodium (136-145) mEq/L Potassium (3.5-5.1) mEq/L Chloride (98-107) mEq/L Carbon Dioxide (21-32) mEq/L Anion Gap (5-15) BUN (7-18) mg/dL Creatinine (0.55-1.02) mg/dL Est Cr Clr Drug Dosing mL/min Estimated GFR (MDRD) (>60) mL/min BUN/Creatinine Ratio (14-18) Glucose (74-106) mg/dL Calcium (8.5-10.1) mg/dL Total Bilirubin (0.2-1.0) mg/dL AST (15-37) U/L ALT (14-59) U/L Alkaline Phosphatase (46-116) U/L Total Protein (6.4-8.2) g/dl Albumin (3.4-5.0) g/dl Globulin gm/dL Albumin/Globulin Ratio (1-2) Urine Color (Yellow) Urine Appearance (Clear) Urine pH (5.0-8.0) Ur Specific [place] (1.005-1.030) Urine Protein (Negative) Urine Glucose (UA) (Negative) Urine Ketones (Negative) Urine Occult Blood (Negative) Urine Nitrite (Negative) Urine Bilirubin (Negative) Urine Urobilinogen (0.2-1.0) Ur Leukocyte Esterase (Negative) Urine RBC (0-5) /hpf Urine WBC (0-5) /hpf Ur Squamous Epith Cells (0-5) /hpf Urine Bacteria (FEW) /hpf Urine Mucus (FEW) /hpf Salicylates (2.8-20) mg/dL Urine Opiates Screen Negative (TYDDVJ=417) Ur Buprenorphine Scrn Negative (CUTOFF=10) Ur Oxycodone Screen Negative (QAO4SP=240) Urine Methadone Screen Negative (XFMAPV=333) Ur Propoxyphene Screen Negative (KMBSBX=028) Acetaminophen (10-30) ug/mL Ur Barbiturates Screen Negative (THIYMZ=102) Ur Tricyclics Screen Negative (SCWARV=604) Ur Phencyclidine Scrn Negative (CUTOFF=25) Ur Amphetamine Screen Negative (XSULGW=506) U Methamphetamines Scrn Negative (ODLCZW=655) U Benzodiazepines Scrn Presumptive positive H (EJRZWR=857) U Cocaine Metab Screen Negative (ALVAGN=152) U Marijuana (THC) Screen Negative (CUTOFF=50) Ethyl Alcohol (0.00) gm% Meds: Medications Discontinued Medications Generic Name Dose Route Start Last Admin Trade Name Ela PRN Reason Stop Dose Admin Lactated Ringer's 1,000 mls @ 999 mls/hr 06/04/20 20:06 06/04/20 21:07 Ringers, Lactated IV 06/04/20 21:06 999 mls/hr .BOLUS ONE Administration - Re-Assessments/Exams Free Text/Narrative Re-Assessment/Exam: 06/04/20 20:05 Labs and EKG ordered. Case discussed with poison control. They thought another few hours the patient would be clear of the worst of the side effects. And recommended discharging at that time. 06/04/20 22:44 Patient is doing well at this time she again assures me she is not suicidal has no wishes to hurt herself or harm her self. It sounds that she is quite confused about how to take her medication and this probably explains why they are missing she interpreted her Xanax is taking 2 4 times a day. And then somehow with the increase of the gabapentin was taking it for 5 times a day. At this time with the patient to resume her routine medications with the exception of the gabapentin stay off this until tomorrow, Monday night at which point she is to start taking it 1 twice daily. Tomorrow morning she can restart the Xanax 1/2 tablet 4 times a day. The patient has verbalized this dosage adjustment and agrees to follow through with this. Patient has follow-up with her psychiatrist on Monday. It should be noted that during the patient stay she has never exhibited any sedation extreme or otherwise. She has otherwise done well. The patient's urine is mildly suggestive of a developing urinary tract infection. The patient has not had any symptoms I discussed this with the patient again she confirms she is not having any symptoms. We will not treat this at this time. We will await culture and sensitivity. This is explained in no uncertain terms to the patient she voices understanding. Departure - Departure Time of Disposition: 22:47 Disposition: Home, Self-Care 01 Clinical Impression: Unintentional poisoning by psychotropic drug - Discharge Information Instructions: Accidental Drug Poisoning, Adult Referrals: PCP,Unknown [Ordering Only Provider] - Forms: ED Department Discharge Additional Instructions: Return to the emergency room with any questions problems or worsening symptoms. Follow-up with your psychiatrist as scheduled Monday. As we discussed take your Xanax, 1/2 tablet, 4 times a day for a total of 2 tablets daily. With your gabapentin start it tomorrow, Monday night. Take it twice daily until you see your psychiatrist. Sepsis Event Note (ED) - Focused Exam Vital Signs: Vital Signs Temp Pulse Resp BP Pulse Ox 06/04/20 19:24 36.2 C 81 14 139/91 H 100 - My Orders Last 24 Hours: My Active Orders 06/04/20 19:53 EKG Documentation Completion [RC] STAT 06/04/20 21:46 CULTURE URINE [RM] Stat - Assessment/Plan Last 24 Hours: My Active Orders 06/04/20 19:53 EKG Documentation Completion [RC] STAT 06/04/20 21:46 CULTURE URINE [RM] Stat
[2020-06-04] MEDS ORDERED: Lactated Ringers 1,000 ML IV ONE (20:06)
[2020-06-04 20:50] LABS: ACETAMINOPHEN 0 ug/mL (10-30)
[2020-06-04 23:15] VITALS: BP 129/79; PULSE 82
== END 2020-06-04 23:10 | disposition home or self-care (01) ==
LOC: JD.ED 19:22
DX: T43.91XA Poisoning by unspecified psychotropic drug, accidental (unintentional), initial encounter (principal); J45.909 Unspecified asthma, uncomplicated; Z79.899 Other long term (current) drug therapy
CPT/HCPCS: 36415; 36600; 80053; 80143; 80179; 80306; 80307; 81001; 82803; 85025; 85610; 87086; 93005; 99284; J7120; 93010

== ENCOUNTER 2020-06-05 00:55 | Emergency (ER) | payer MEDICAID ==
[2020-06-05 01:11] VITALS: PULSE 80
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
[2020-06-05 14:09] VITALS: BP 118/65
== END 2020-06-05 14:08 | disposition home or self-care (01) ==
LOC: JD.ED 00:55
DX: T50.901A Poisoning by unspecified drugs, medicaments and biological substances, accidental (unintentional), initial encounter (principal); F32.9 Major depressive disorder, single episode, unspecified; Z72.0 Tobacco use; J45.909 Unspecified asthma, uncomplicated; Z79.899 Other long term (current) drug therapy
CPT/HCPCS: 36415; 80179; 99283; 99284

== ENCOUNTER 2023-04-11 08:15 | Emergency (ER) | payer MEDICAID ==
[2023-04-11] MEDS ORDERED: Metoclopramide 10 MG/2 ML SDV IVPUSH ONE (09:02)
[2023-04-11] MEDS ORDERED: Dexamethasone 4 MG/ML 5 ML MDV IV ONE (09:03)
[2023-04-11] MEDS ORDERED: HYDROmorphone 0.5 MG/0.5 ML Syringe IVPUSH ONE (09:03)
[2023-04-11] MEDS ORDERED: Ketorolac 30 MG/ML SDV IVPUSH SCH (09:15)
[2023-04-11] MEDS ORDERED: Dexamethasone 10 MG/ML SDV IV ONE (09:15)
[2023-04-11] MEDS ORDERED: Dextrose 5%-0.9% NaCl 1,000 ML IV SCH (09:15)
[2023-04-11 16:56] VITALS: BP 137/82; PULSE 71
== END 2023-04-11 10:52 | disposition home or self-care (01) ==
LOC: JD.ED 08:15
DX: H66.91 Otitis media, unspecified, right ear (principal); G52.9 Cranial nerve disorder, unspecified; J45.909 Unspecified asthma, uncomplicated; K21.9 Gastro-esophageal reflux disease without esophagitis; Z79.899 Other long term (current) drug therapy
CPT/HCPCS: 96361; 96374; 96375; 99283; J1100; J1170; J1885; J2765; J7042

== ENCOUNTER 2023-04-13 18:25 | Emergency (ER) | payer MEDICAID ==
[2023-04-13] MEDS ORDERED: Ondansetron 4 MG/2 ML SDV IVPUSH ONE (19:28)
[2023-04-13] MEDS ORDERED: Lactated Ringers 1,000 ML IV SCH (19:30)
[2023-04-13] MEDS ORDERED: Acetaminophen 325 MG Tab PO ONE (19:30)
[2023-04-13 20:30] LABS: BASOPHILS PERCENT AUTO 0.2 % (0.0-1.0); EOSINOPHILS ABSOLUTE AUTO 0.1 K/mm3 (0.0-0.4); EOSINOPHILS PERCENT AUTO 0.7 % (0.0-6.0); HEMATOCRIT 39.3 % (37.0-47.0); HEMOGLOBIN 13.5 gm/dl (12.0-16.0); IMMATURE GRAN ABSOLUTE AUTO 0.05 K/mm3 (0.00-0.05); IMMATURE GRAN PERCENT AUTO 0.5 % (0.0-0.4); LYMPHOCYTES ABSOLUTE AUTO 2.8 K/mm3 (1.0-4.8); LYMPHOCYTES PERCENT AUTO 25.2 % (24.0-44.0); MEAN CORPUSCULAR HEMOGLOBIN 33.4 pg (28.0-32.0); MEAN CORPUSCULAR HGB CONC 34.4 g/dl (32.0-36.0); MEAN CORPUSCULAR VOLUME 97.3 fl (83.0-99.0); MEAN PLATELET VOLUME 9.7 fl (9.4-12.3); MONOCYTES ABSOLUTE AUTO 0.9 K/mm3 (0.0-0.8); MONOCYTES PERCENT AUTO 8.2 % (0.0-8.0); NEUTROPHILS ABSOLUTE AUTO 7.1 K/mm3 (1.8-7.7); NEUTROPHILS PERCENT AUTO 65.2 % (41.0-71.0); PLATELET COUNT,PLT 208 K/mm3 (150-400); RED BLOOD CELL COUNT 4.04 M/mm3 (4.10-5.30); WHITE BLOOD CELL COUNT,WBC 10.95 K/mm3 (3.9-11.3)
[2023-04-13 20:51] LABS: A/G RATIO 0.8 (1-2); ALBUMIN 3.1 g/dl (3.4-5.0); ANION GAP 14.4 (5-15); BILIRUBIN TOTAL 0.2 mg/dL (0.2-1.0); BUN/CREATININE RATIO 11.3 (14-18); CALCIUM 8.6 mg/dL (8.5-10.1); CREATININE 0.8 mg/dL (0.55-1.02); EST CRCL DRUG DOSING (CG) 86.6 mL/min; POTASSIUM,K 3.4 mEq/L (3.5-5.1); PROTEIN TOTAL,TP 7.1 g/dl (6.4-8.2)
[2023-04-13 20:53] LABS: INR 0.94; PROTHROMBIN TIME 10.1 SECONDS (9.7-12.0)
[2023-04-13] MEDS ORDERED: Heparin Sodium 5,000 Units/ML Vial IVPUSH ONE (21:05)
[2023-04-13] MEDS ORDERED: Heparin Sodium/D5W 25,000 UNITS/500 ML BAG IV STA (21:16)
[2023-04-13 23:15] VITALS: BP 119/76; PULSE 68
== END 2023-04-13 23:38 ==
LOC: JD.ED 18:25
DX: I82.890 Acute embolism and thrombosis of other specified veins (principal); J45.909 Unspecified asthma, uncomplicated; Z79.899 Other long term (current) drug therapy
CPT/HCPCS: 36415; 70450; 80053; 85025; 85610; 85730; 93005; 96361; 96365; 96366; 96375; 99285; A9270; J1644; J2405; J7120

== ENCOUNTER 2023-12-16 09:24 | Emergency (ER) | payer MEDICAID ==
[2023-12-16] MEDS: Metoclopramide 10 MG/2 ML SDV IVPUSH ONE (11:04)
[2023-12-16] MEDS: Dextrose 5%-0.9% NaCl 1,000 ML IV SCH (11:04)
[2023-12-16] MEDS: HYDROmorphone 0.5 MG/0.5 ML Syringe IVPUSH ONE (11:04)
[2023-12-16 16:30] VITALS: BP 124/77; PULSE 80
== END 2023-12-16 13:40 | disposition home or self-care (01) ==
LOC: JD.ED 09:24
DX: O99.891 Other specified diseases and conditions complicating pregnancy (principal); G44.049 Chronic paroxysmal hemicrania, not intractable; Z87.891 Personal history of nicotine dependence; Z3A.08 8 weeks gestation of pregnancy
CPT/HCPCS: 70450; 70450-26; 96361; 96374; 96375; 99283-25; J1170; J2765; J7042

== ENCOUNTER 2024-08-20 07:32 | Inpatient (IN) | payer MEDICAID ==
[~2024-08-20 07:32] MED LIST: Bupivacaine 0.25% 10 ML SDV ONE
[2024-08-20] MEDS ORDERED: Lidocaine 1% 50 ML MDV INJECT PRN (07:46)
[2024-08-20] MEDS ORDERED: Nalbuphine 10 MG/1 ML Vial IVPUSH PRN (07:46)
[2024-08-20] MEDS ORDERED: Ondansetron 4 MG/2 ML SDV IVPUSH PRN (07:46)
[2024-08-20] MEDS ORDERED: Oxytocin/0.9 % Sodium Chloride 30 UNIT/500 ML BAG IV SCH (08:00)
[2024-08-20 08:07] LABS: BASOPHILS PERCENT AUTO 0.1 % (0.0-1.0); EOSINOPHILS ABSOLUTE AUTO 0.1 K/mm3 (0.0-0.4); EOSINOPHILS PERCENT AUTO 1.1 % (0.0-6.0); HEMATOCRIT 35.2 % (37.0-47.0); HEMOGLOBIN 11.6 gm/dl (12.0-16.0); IMMATURE GRAN ABSOLUTE AUTO 0.09 K/mm3 (0.00-0.05); IMMATURE GRAN PERCENT AUTO 0.8 % (0.0-0.4); LYMPHOCYTES ABSOLUTE AUTO 1.4 K/mm3 (1.0-4.8); LYMPHOCYTES PERCENT AUTO 13.1 % (24.0-44.0); MEAN CORPUSCULAR HEMOGLOBIN 28.9 pg (28.0-32.0); MEAN CORPUSCULAR VOLUME 87.8 fl (83.0-99.0); MONOCYTES ABSOLUTE AUTO 0.8 K/mm3 (0.0-0.8); MONOCYTES PERCENT AUTO 7.6 % (0.0-8.0); NEUTROPHILS ABSOLUTE AUTO 8.4 K/mm3 (1.8-7.7); NEUTROPHILS PERCENT AUTO 77.3 % (41.0-71.0); PLATELET COUNT,PLT 192 K/mm3 (150-400); RED BLOOD CELL COUNT 4.01 M/mm3 (4.10-5.30); WHITE BLOOD CELL COUNT,WBC 10.84 K/mm3 (3.9-11.3)
[2024-08-20] MEDS: Lactated Ringers 1,000 ML IV SCH (09:06)
[2024-08-20] MEDS: Oxytocin/0.9 % Sodium Chloride 30 UNIT/500 ML BAG IV SCH (09:06)
[2024-08-20 10:48] LABS: INR 0.96; PROTHROMBIN TIME 10.2 SECONDS (9.7-12.0)
[2024-08-20 10:50] LABS: PTT,PARTIAL THROMBOPLSTIN TIME 21.9 SECONDS (21.7-31.4)
[2024-08-20] MEDS ORDERED: diphenhydrAMINE 50 MG/ML SDV IVPUSH PRN (12:54)
[2024-08-20] MEDS ORDERED: ePHEDrine 50 MG/ML SDV IVPUSH PRN (12:54)
[2024-08-20] MEDS: Bupivacaine/fentaNYL/NS 100 ML Bag EPIDUR PRN (13:00)
[2024-08-20] MEDS: fentaNYL 100 MCG/2 ML SDV EPIDUR PRN (13:00)
[2024-08-20] MEDS: Witch Hazel Medicated Pads 40/Jar TOP PRN (19:43)
[2024-08-20] MEDS: Benzocaine/Menthol 20%-0.5% Spray 78 GM Cannister TOP PRN (19:43)
[2024-08-20] MEDS: Acetaminophen 325 MG Tab PO PRN (19:43)
[2024-08-21] MEDS: Enoxaparin 40 MG/0.4 ML Syringe SUBCUT SCH (17:36)
[2024-08-21 18:07] VITALS: BP 132/80; PULSE 70
== END 2024-08-21 18:21 | disposition home or self-care (01) | DRG 807 ==
LOC: JD.OBCHECK 07:32 → JD.OB 07:33 → JD.OBCHECK 07:46 → OBSVTOIN 17:06 → JD.OB 17:07
PROVIDERS: ADMIT Obstetrics & Gynecology; ATTEND Obstetrics & Gynecology
PROC: 0HQ9XZZ Repair Perineum Skin, External Approach (ICD-10-PCS; principal; 2024-08-20)
PROC: 10E0XZZ Delivery of Products of Conception, External Approach (ICD-10-PCS; principal; 2024-08-20)
PROC: 10907ZC Drainage of Amniotic Fluid, Therapeutic from Products of Conception, Via Natural or Artificial Opening (ICD-10-PCS; principal; 2024-08-20)
PROC: 3E0R3BZ Introduction of Anesthetic Agent into Spinal Canal, Percutaneous Approach (ICD-10-PCS; principal; 2024-08-20)
DX: O48.0 Post-term pregnancy (principal); Z37.0 Single live birth; O70.0 First degree perineal laceration during delivery; O24.420 Gestational diabetes mellitus in childbirth, diet controlled; Z3A.40 40 weeks gestation of pregnancy; Z79.899 Other long term (current) drug therapy
CPT/HCPCS: 36415; 51702; 59025; 59409; 85025; 85610; 85730; 86592; 86850; 86900; 86901; A9270-GY; J0665; J1650; J3010; J3490; J7120; J7999

== ENCOUNTER 2024-09-16 03:48 | Emergency (ER) | payer MEDICAID ==
[2024-09-16 04:36] LABS: BASOPHILS PERCENT AUTO 0.3 % (0.0-1.0); EOSINOPHILS ABSOLUTE AUTO 0.2 K/mm3 (0.0-0.4); EOSINOPHILS PERCENT AUTO 1.5 % (0.0-6.0); HEMATOCRIT 42.7 % (37.0-47.0); HEMOGLOBIN 13.9 gm/dl (12.0-16.0); IMMATURE GRAN ABSOLUTE AUTO 0.06 K/mm3 (0.00-0.05); IMMATURE GRAN PERCENT AUTO 0.5 % (0.0-0.4); LYMPHOCYTES PERCENT AUTO 17.2 % (24.0-44.0); MEAN CORPUSCULAR HEMOGLOBIN 28.4 pg (28.0-32.0); MEAN CORPUSCULAR HGB CONC 32.6 g/dl (32.0-36.0); MEAN CORPUSCULAR VOLUME 87.1 fl (83.0-99.0); MEAN PLATELET VOLUME 10.1 fl (9.4-12.3); MONOCYTES ABSOLUTE AUTO 0.8 K/mm3 (0.0-0.8); MONOCYTES PERCENT AUTO 6.6 % (0.0-8.0); NEUTROPHILS ABSOLUTE AUTO 8.6 K/mm3 (1.8-7.7); NEUTROPHILS PERCENT AUTO 73.9 % (41.0-71.0); PLATELET COUNT,PLT 230 K/mm3 (150-400); WHITE BLOOD CELL COUNT,WBC 11.56 K/mm3 (3.9-11.3)
[2024-09-16 04:57] LABS: A/G RATIO 0.9 (1-2); ALBUMIN 3.4 g/dl (3.4-5.0); ANION GAP 16.2 (5-15); BILIRUBIN TOTAL 0.2 mg/dL (0.2-1.0); BUN/CREATININE RATIO 13.8 (14-18); CALCIUM 8.1 mg/dL (8.5-10.1); CREATININE 0.8 mg/dL (0.55-1.02); EST CRCL DRUG DOSING (CG) 85.83 mL/min; POTASSIUM,K 4.2 mEq/L (3.5-5.1); PROTEIN TOTAL,TP 7.2 g/dl (6.4-8.2)
[2024-09-16 06:25] VITALS: BP 109/76; PULSE 89
== END 2024-09-16 06:15 | disposition home or self-care (01) ==
LOC: EEVIPCON 03:48 → JD.ED 03:48
DX: S01.81XA Laceration without foreign body of other part of head, initial encounter (principal); S80.11XA Contusion of right lower leg, initial encounter; S80.12XA Contusion of left lower leg, initial encounter; S50.12XA Contusion of left forearm, initial encounter; J45.909 Unspecified asthma, uncomplicated; Z79.51 Long term (current) use of inhaled steroids; Z79.899 Other long term (current) drug therapy; Y04.0XXA Assault by unarmed brawl or fight, initial encounter
CPT/HCPCS: 12013; 36415; 70450; 70450-26; 70486; 70486-26; 72125; 72125-26; 73060-26-LT; 73060-LT; 73090-26-LT; 73090-LT; 73552-26-LT; 73552-LT; 735902650; 73590-50; 80053; 83690; 84703; 85025; 99284